=== PATIENT | male | born 1960 | race African-American/Black ===

== ENCOUNTER 2020-08-06 15:10 | Emergency (ER) | payer OTHER, SELFPAY ==
--- NOTE | ~2020-08-06 | CT_ITS ---
EXAMINATION: CT ABDOMEN AND PELVIS WITHOUT CONTRAST CLINICAL INFORMATION: Nausea, vomiting. Status post gastric bypass COMPARISON: None TECHNIQUE: Multidetector volumetric imaging was performed from the superior aspect of the liver through the pubic symphysis. Sagittal and coronal reformatted images were obtained on the technologist's workstation. This CT examination was performed using dose optimization techniques as appropriate, variously including the following: *Automated exposure control *Adjustment of mA and/or kV according to patient size (this includes techniques or standardized protocols for targeted exams where dose is matched to indication/reason for exam; i.e. extremities or head) *Use of iterative reconstruction technique DLP: 1079 mGy-cm FINDINGS: LUNG BASES: The visualized lung bases are unremarkable. There is a pacer electrode in the right ventricle. LIVER, GALLBLADDER, AND BILIARY TREE: The liver is normal in size, shape, and attenuation. No focal hepatic lesion or biliary ductal dilatation is present. The gallbladder bladder has been surgically removed. PANCREAS: Unremarkable. SPLEEN: Unremarkable. ADRENAL GLANDS: Unremarkable. KIDNEYS AND URETERS: The kidneys are normal in size, shape, and attenuation. No hydronephrosis, hydroureter, or calculi seen. No perinephric stranding. There are bilateral renal cysts BLADDER: Unremarkable. GASTROINTESTINAL TRACT: There are gastric bypass surgical changes. The small bowel loops are normal caliber. Appendix is normal caliber. Scattered colonic diverticulosis without distention.. ABDOMINAL WALL: No significant hernia is appreciated. LYMPH NODES: Normal. VASCULAR: Unremarkable. PELVIC VISCERA: Unremarkable. OSSEOUS STRUCTURES: There is a nondisplaced anterior left 11th rib fracture or additional bony abnormality seen. There is mild ventral spondylosis L3-L4 disc level. No lytic or sclerotic process seen. CT/CT abdomen pelvis wo con IMPRESSION: No acute intra-abdominal process seen. Colonic diverticulosis without diverticulitis. Bilateral renal cysts. No radiopaque renal calculi. Gastric bypass surgical changes are noted.
[2020-08-06 16:08] VITALS: BP 147/92; PULSE 107; RESP 18; TEMP 37.1; O2SAT 97; BMI 36.2
[2020-08-06 18:52] LABS: Basophils Percent Auto 0.2 % (0-2); Hematocrit 43.2 % (42-52); MANUAL DIFF FLAG SCAN; Mean Corpuscular Volume 87.1 fL (80-98); PLT CLUMP 1; Red Blood Count 4.96 X10*6/uL (4.60-5.80); Red Cell Distribution Width 14.7 % (11.0-16.0); SCAN SMEAR FLAG 1
[2020-08-06 18:54] LABS: Imm Gran Abs Auto 0.02 X10*3/uL (0.00-0.03); Imm Gran Pct Auto 0.4 % (0.0-0.4); Lymphocytes Absolute Auto 0.3 X10*3/uL (1.2-4.9); Lymphocytes Percent Auto 5.9 % (20-40); Mean Corpuscular HGB Conc 34.7 g/dl (31.0-36.0); Mean Corpuscular Hemoglobin 30.2 pg (27.0-33.0); Mean Platelet Volume 9.9 fL (9.4-12.4); Monocytes Absolute Auto 0.5 X10*3/uL (0.1-1.2); Monocytes Percent Auto 8.2 % (2-11); Neutrophils Absolute Auto 4.7 X10*3/uL (2.0-8.3); Neutrophils Percent Auto 85.3 % (45-73); Platelet Count 133 X10*3/uL (160-400); White Blood Count 5.5 X10*3/uL (4.8-10.8)
[2020-08-06 19:14] LABS: SLIDE REVIEW VERIFIED
[2020-08-06 19:51] LABS: Blood Urea Nitrogen 14 mg/dL (9-16)
[2020-08-06 19:53] LABS: Alanine Aminotransferase 24 U/L (0-40); Alkaline Phosphatase 120 U/L (39-117); Aspartate Amino Transferase 37 U/L (5-37); Bilirubin Total 0.4 mg/dL (0.0-1.0); Calcium 9.4 mg/dL (8.4-10.2); Carbon Dioxide 22 mmol/L (22-29); Chloride 98 mmol/L (96-108); Creatinine Clr Calc Pharmacy 66.6; Estimated Glomerular Filt Rate 47; Glucose Random 296 mg/dL (60-115); Sodium 132 mmol/L (135-145); Total Protein 7.4 g/dL (6.5-8.0)
--- NOTE | 2020-08-06 21:13 | ECG_ITS ---
Test Reason : HYPERTENSION Blood Pressure : / mmHG Vent. Rate : 103 BPM Atrial Rate : 103 BPM P-R Int : 140 ms QRS Dur : 118 ms QT Int : 364 ms P-R-T Axes : 033 -48 061 degrees QTc Int : 476 ms Sinus tachycardia with Premature atrial complexes with Aberrant conduction Left anterior fascicular block Left ventricular hypertrophy with QRS widening Cannot rule out Inferior infarct (masked by fascicular block?) , age undetermined Abnormal ECG No previous ECGs available Referred By: Sarah Washington Electronically Signed By:ELIGIO BRANDON MD
--- NOTE | 2020-08-06 21:16 | ED.ABDPAIN ---
HPI - Abdominal Pain General Chief Complaint: Abdominal Pain Stated Complaint: N/V/D X'S 3 DAYS Time Seen by Provider: 08/06/20 21:01 History of Present Illness HPI narrative: Patient is a 60-year-old male with a history of atrial fibrillation. Status post gastric bypass back in 2002. Presents today with having nausea vomiting diarrhea. Diarrhea is brown in color appears complex. Patient is on Eliquis for atrial fibrillation. Patient is complaining of nausea mostly of whitish clearish liquid. Patient denies any chest pain. No diaphoresis. Patient is from home. No coughing or congestion or upper respiratory symptoms. Related Data Previous Rx's Medication Instructions Recorded ondansetron 4 mg PO TID PRN 5 Days #10 tab 08/06/20 Allergies Allergy/AdvReac Type Severity Reaction Status Date / Time No Known Allergies Allergy Verified 08/06/20 16:12 Review of Systems Review of Systems Constitutional: No Weight loss, No Fever, No Chills, No Night Sweats, No Fatigue, No Malaise ENT/Mouth: No Hearing loss, No Ear Pain, No Nasal Congestion, No Sinus Pain, No Hoarseness, No sore throat, No Rhinorrhea, No Swallowing Difficulty Eyes: No Eye Pain, No Swelling, No Redness, No Foreign Body, No Discharge, No Vision Changes Cardiovascular: No Chest Pain, No SOB, No Dyspnea on Exertion, No Orthopnea, No Edema, No Palpitations Respiratory: No Cough, No Sputum, No Wheezing, No Smoke Exposure, No Dyspnea Gastrointestinal: No Nausea, positive Vomiting, positive Diarrhea, No Constipation, positive abdominal Pain, No Hematochezia, No Melena Genitourinary: no irregular bleeding, No Dysuria, No Urinary Frequency, No Hematuria, No Urinary Incontinence, No Urgency, No Flank Pain, No Urinary Flow Changes, No Hesitancy Musculoskeletal: No joint pain, No Myalgias, No Joint Swelling Skin: No Skin Lesions, No rash Neuro: No Weakness, No Numbness, No Paresthesias, No Loss of Consciousness, No Dizziness, No Headache Psych: No Anxiety/Panic, No Depression, No SI/HI/AH/VH, No Social Issues, Heme/Lymph: No Bruising, No Bleeding,No Lymphadenopathy Endocrine: No Polyuria, No Polydipsia, No Temperature Intolerance Yes all other systems are reviewed and are negative Physical Exam Vital Signs: Vital Signs: Last Vital Signs Temp 98.7 F 08/06/20 22:17 Pulse 96 08/06/20 23:32 Resp 16 08/06/20 23:32 BP 162/72 H 08/06/20 23:32 Pulse Ox 96 08/06/20 22:17 Body Mass Index 36.2 Appearance: Alert. Oriented X3. No acute distress. Eyes: Pupils equal, round and reactive to light. ENT: Pharynx normal. Neck: Normal inspection. Neck supple. No lymph nodes noted. No crepitus CVS: Normal heart rate and rhythm. Pulses normal. Normal S1 and S2 Respiratory: No respiratory distress. Breath sounds normal. No Wheezing. No rales Abdomen: Soft and nontender. No rigidity. No distention. good BS x4 Skin: Skin warm and dry. Normal skin color. Normal skin turgor. Extremities: No lower extremity edema. Neurovascular intact to all extremities. No Lacerations. No Rash Neuro: Oriented X 3. No motor deficit. No sensory deficit. Moving all extermities. No slurred speech MDM - Abdominal Pain MDM Narrative Medical decision making narrative: Previous history of gastric bypass. Patient presented today with nausea. Vomiting. Given Zofran. IV fluids. Patient's CT scan did not show any acute obstruction. No abscess. No perforation. Patient's creatinine is 1.5. This is about baseline. Patient's potassium on recheck was 5 which is normal. Patient to be discharged home as symptoms improved now he is tolerating p.o.. In stable condition Medical Records Attestation: I reviewed the patient's medical records. Lab Data Attestation: I reviewed the patient's lab results. Result diagrams: 08/06/20 18:43 08/06/20 22:15 Labs: Lab Results 08/06/20 08/06/20 08/06/20 Range/Units 18:43 18:43 22:15 WBC 5.5 (4.8-10.8) X10*3/uL RBC 4.96 (4.60-5.80) X10*6/uL Hgb 15.0 (14.0-18.0) g/dl Hct 43.2 (42-52) % MCV 87.1 (80-98) fL MCH 30.2 (27.0-33.0) pg MCHC 34.7 (31.0-36.0) g/dl RDW 14.7 (11.0-16.0) % Plt Count 133 L (160-400) X10*3/uL MPV 9.9 (9.4-12.4) fL Immature Gran % (Auto) 0.4 (0.0-0.4) % Neut % (Auto) 85.3 H (45-73) % Lymph % (Auto) 5.9 L (20-40) % [place] % (Auto) 8.2 (2-11) % Eos % (Auto) 0.0 (0-4) % Baso % (Auto) 0.2 (0-2) % Lymph # (Auto) 0.3 L (1.2-4.9) X10*3/uL [place] # (Auto) 0.5 (0.1-1.2) X10*3/uL Eos # (Auto) 0.0 (0.0-0.4) X10*3/uL Baso # (Auto) 0.0 (0.0-0.2) X10*3/uL Abs Immat Gran (auto) 0.02 (0.00-0.03) X10*3/uL Absolute Neuts (auto) 4.7 (2.0-8.3) X10*3/uL Absolute Nucleated RBC 0.000 (0.0-0.012) X10*3/uL Nucleated RBC % (auto) 0.0 (0.0-0.2) /100WBC Smear Tech's Comments VERIFIED Sodium 132 L 134 L (135-145) mmol/L Potassium 6.5 H* 5.0 D (3.3-5.1) mmol/L Chloride 98 100 (96-108) mmol/L Carbon Dioxide 22 17 L (22-29) mmol/L Anion Gap 19 22 H (12-20) BUN 14 14 (9-16) mg/dL Creatinine 1.50 H 1.58 H (0.5-1.4) mg/dL Estim Creat Clear Calc 66.6 63.3 Estimated GFR 47 45 Random Glucose 296 H 275 H (60-115) mg/dL Calcium 9.4 8.5 D (8.4-10.2) mg/dL Total Bilirubin 0.4 (0.0-1.0) mg/dL AST 37 (5-37) U/L ALT 24 (0-40) U/L Alkaline Phosphatase 120 H (39-117) U/L Total Protein 7.4 (6.5-8.0) g/dL Albumin 4.0 (3.5-5.0) g/dL COVID-19 ([facility]) (Negative) COVID-19 Clin Com 08/06/20 Range/Units 22:15 WBC (4.8-10.8) X10*3/uL RBC (4.60-5.80) X10*6/uL Hgb (14.0-18.0) g/dl Hct (42-52) % MCV (80-98) fL MCH (27.0-33.0) pg MCHC (31.0-36.0) g/dl RDW (11.0-16.0) % Plt Count (160-400) X10*3/uL MPV (9.4-12.4) fL Immature Gran % (Auto) (0.0-0.4) % Neut % (Auto) (45-73) % Lymph % (Auto) (20-40) % [place] % (Auto) (2-11) % Eos % (Auto) (0-4) % Baso % (Auto) (0-2) % Lymph # (Auto) (1.2-4.9) X10*3/uL [place] # (Auto) (0.1-1.2) X10*3/uL Eos # (Auto) (0.0-0.4) X10*3/uL Baso # (Auto) (0.0-0.2) X10*3/uL Abs Immat Gran (auto) (0.00-0.03) X10*3/uL Absolute Neuts (auto) (2.0-8.3) X10*3/uL Absolute Nucleated RBC (0.0-0.012) X10*3/uL Nucleated RBC % (auto) (0.0-0.2) /100WBC Smear Tech's Comments Sodium (135-145) mmol/L Potassium (3.3-5.1) mmol/L Chloride (96-108) mmol/L Carbon Dioxide (22-29) mmol/L Anion Gap (12-20) BUN (9-16) mg/dL Creatinine (0.5-1.4) mg/dL Estim Creat Clear Calc Estimated GFR Random Glucose (60-115) mg/dL Calcium (8.4-10.2) mg/dL Total Bilirubin (0.0-1.0) mg/dL AST (5-37) U/L ALT (0-40) U/L Alkaline Phosphatase (39-117) U/L Total Protein (6.5-8.0) g/dL Albumin (3.5-5.0) g/dL COVID-19 ([facility]) Negative (Negative) COVID-19 Clin Com See Note Discharge Plan Discharge Clinical Impression: Nausea, Vomiting Patient Disposition: Home, Self-Care Instructions: Acute Nausea and Vomiting (ED) Prescriptions: New ondansetron 4 mg tablet,disintegrating 4 mg PO TID PRN (Reason: nausea and vomiting) 5 Days Qty: 10 RF: 0 Referrals: Physician,Unknown [Primary Care Provider] - 2 days PMF[facility] Past Medical History Attestation statement: The following information was validated with the patient. Medical History Afib Diabetes HTN (hypertension) Surgical History H/O coronary artery bypass surgery Social History Social History Advance Directives: No Advance Directives Information Provided: Yes
[2020-08-06 21:24] VITALS: RESP 16
[2020-08-06] MEDS: 0.9 % Sodium Chloride 1,000 ML 999 ML IV (21:24)
[2020-08-06] MEDS: ondansetron HCL 4 MG/2 ML VIAL IVPUSH ×2 (21:24→23:31)
[2020-08-06] MEDS: HYDROmorphone HCl 0.5 MG/0.5 ML SYRINGE IVPUSH ×2 (21:24→23:30)
[2020-08-06 22:17] VITALS: BP 172/70; PULSE 73; RESP 18; TEMP 37.1; O2SAT 96
[2020-08-06 22:38] LABS: COVID-19 Test Negative (Negative)
[2020-08-06 22:56] LABS: Anion Gap 22 (12-20); Blood Urea Nitrogen 14 mg/dL (9-16); Calcium 8.5 mg/dL (8.4-10.2); Carbon Dioxide 17 mmol/L (22-29); Chloride 100 mmol/L (96-108); Creatinine Clr Calc Pharmacy 63.3; Estimated Glomerular Filt Rate 45; Glucose Random 275 mg/dL (60-115); Sodium 134 mmol/L (135-145)
[2020-08-06 23:30] LABS: Potassium 6.5 mmol/L (3.3-5.1)
[2020-08-06 23:31] LABS: Anion Gap 19 (12-20)
[2020-08-06 23:32] VITALS: BP 162/72; PULSE 96; RESP 16
--- NOTE | 2020-08-06 23:42 | PC.NURSE ---
PT MEDICATED PER EMAR FOR PAIN AND NAUSEA. PT RESTING IN STRETCHER IN NAD. PT REMAINS ON MONITOR WITH HR 108. PT DENIES ANY COMPLAINTS AND WAS CLEANED UP AFTER HAVING A LG BM AFTER CT. WILL CONTINUE TO MONITOR PT.
== END 2020-08-07 00:44 | disposition home or self-care (01) ==
PROVIDERS: Emergency Provider Emergency Medicine Emergency Medical Services
DX: R11.2 Nausea with vomiting, unspecified (principal); R19.7 Diarrhea, unspecified; Z20.822 Contact with and (suspected) exposure to COVID-19; I48.91 Unspecified atrial fibrillation; Z98.84 Bariatric surgery status; Z79.01 Long term (current) use of anticoagulants
CPT/HCPCS: 36415; 74176; 80048; 80053; 85025; 87635; 93005; 96361; 96374; 96375; 96376; 99284; J1170; J2405

== ENCOUNTER 2021-04-24 10:59 | Inpatient (IN) | payer OTHER, SELFPAY ==
[2021-04-24] VITALS (7 sets, daily range): BP systolic 107–133; BP diastolic 60–88; PULSE 91–118; RESP 13–19; TEMP 35.8–37; O2SAT 97–100; BMI 34.8
--- NOTE | ~2021-04-24 | XR_ITS ---
EXAMINATION: XR CHEST CLINICAL INFORMATION: Right IJ placement. COMPARISON: None TECHNIQUE: Frontal view of the chest was obtained. XR/XR chest 1V FINDINGS/IMPRESSION: Right internal jugular central venous catheter terminates in the mid SVC. No pneumothorax. Lungs are clear. No pleural effusion. Normal heart size and vascularity. Single lead AICD stably positioned.
--- NOTE | ~2021-04-24 | CT_ITS ---
EXAMINATION: CT ANGIOGRAM OF THE CHEST WITH AND WITHOUT CONTRAST (CT PULMONARY ANGIOGRAM FOR PE) CLINICAL INFORMATION: Reason for Exam SOB, hypoxia, vomiting blood, R/0 PE COMPARISON: None TECHNIQUE: Prior to contrast administration, noncontrast localization images were obtained. Subsequently, multidetector volumetric imaging was performed from the thoracic inlet to below the diaphragms following the administration of 80 mL Omnipaque 350 intravenous contrast. No contrast reaction reported Sagittal, coronal, and MIP oblique sagittal reformatted images were obtained on the CT workstation, uploaded to PACS, and reviewed. This CT examination was performed using dose optimization techniques as appropriate, variously including the following: *Automated exposure control *Adjustment of mA and/or kV according to patient size (this includes techniques or standardized protocols for targeted exams where dose is matched to indication/reason for exam; i.e. extremities or head) *Use of iterative reconstruction technique Total exam dose-length product 1787 mGy-cm FINDINGS: QUALITY OF STUDY/CONTRAST BOLUS: Satisfactory. PULMONARY ARTERIES: No central or segmental pulmonary emboli. THORACIC AORTA: No aneurysm or dissection. LUNG: Mild atelectatic changes in right lung base. No acute pneumonic consolidation. PLEURA: There is minimal left posterior dependent pleural effusion. No calcified pleural plaques are pneumothorax. MEDIASTINUM: Normal heart size. No pericardial effusion. No hilar or mediastinal lymphadenopathy. No evidence of septal bowing or right heart strain. CHEST WALL/AXILLA: No axillary or internal mammary lymphadenopathy. OSSEOUS STRUCTURES: No acute or suspicious osseous abnormality. UPPER ABDOMEN: The liver is diffusely attenuated without focal lesion. 2.3 cm cyst upper pole and an exophytic 2.21 cm cyst upper/mid pole right kidney. Likely small additional cyst seen. No reflux of contrast into the hepatic veins to suggest elevated right heart pressures. CT/CT angio chest PE protocol IMPRESSION: No evidence of PE. No evidence of aortic dissection or aneurysm. Minimal right lower lobe atelectasis. Mild hepatic steatosis. Multiple right renal cysts VTE: negative
--- NOTE | ~2021-04-24 | CT_ITS ---
EXAMINATION: CT ABDOMEN AND PELVIS WITH CONTRAST CLINICAL INFORMATION: Diffuse abdominal pain. Vomiting blood. COMPARISON: CT of the abdomen and pelvis done on 08/06/2020. TECHNIQUE: Multidetector volumetric images were obtained from the superior aspect of the liver through the pubic symphysis following administration 100 mL of Omnipaque 350 intravenous contrast. Sagittal and coronal reformatted images were obtained on the technologist's workstation. Oral contrast: No This CT examination was performed using dose optimization techniques as appropriate, variously including the following: *Automated exposure control *Adjustment of mA and/or kV according to patient size (this includes techniques or standardized protocols for targeted exams where dose is matched to indication/reason for exam; i.e. extremities or head) *Use of iterative reconstruction technique DLP: 1238 mGy-cm FINDINGS: LUNG BASES: Linear pleuroparenchymal presumed scar related changes are noted bilaterally (right greater than left), similar to prior study. Significant coronary artery calcifications are noted, similar to prior study. Trace amount of left-sided effusion is seen. LIVER, GALLBLADDER, AND BILIARY TREE: Diffuse hepatic hypodensity consistent with severe steatosis present, similar to prior study. No superimposed focal liver lesion. The gallbladder is surgically absent. PANCREAS: 2.3 cm maximum transverse dimension hypodensity is noted at the tail of the pancreas with subtle peripancreatic inflammatory changes around the tail, may represent focal pancreatitis versus distal pancreatic neoplasm with superimposed focal pancreatitis. Finding is new since 08/06/2020. The remainder of the pancreas otherwise appear unremarkable. SPLEEN: Unremarkable. ADRENAL GLANDS: Unremarkable. KIDNEYS AND URETERS: Multiple cortical as well as exophytic hypodensities are present bilaterally, not optimally characterized, likely represent cortical renal cysts are noted no evidence of any hydronephrosis or obstruction or perinephric or periureteric inflammatory changes, unchanged. BLADDER: Unremarkable. GASTROINTESTINAL TRACT: Extensive fecal residual is noted within the rectum with apparent short segment narrowing of the distal sigmoid colon the remainder of the large bowel shows extensive fecal residual and colonic diverticulosis without any CT features of superimposed acute diverticulitis. The appendix is not visualized. The small bowel loops are decompressed. Postsurgical changes are noted at the stomach. ABDOMINAL WALL: No significant hernia is appreciated. LYMPH NODES: There are no pathologically enlarged retroperitoneal, pelvic, groin or mesenteric lymphadenopathy present. VASCULAR: Atherosclerotic disease is present within the aorta and is branches without aneurysm formation. PELVIC VISCERA: Trace amount of free fluid is noted within the presacral space. OSSEOUS STRUCTURES: No suspicious focal lesion. CT/CT abdomen pelvis w con IMPRESSION: 1. Abnormal study showing 2.3 cm maximum dimension hypodense lesion at the tail of the pancreas with subtle peripancreatic inflammatory changes around the tail, may represent focal pancreatitis versus distal pancreatic neoplasm with superimposed focal pancreatitis. This is a new finding since 08/06/2020. 2. Trace amount of left-sided pleural effusion and significant atherosclerotic coronary arterial disease. 3. Diffuse hepatic hypodensity consistent with severe hepatic steatosis. No superimposed focal liver lesion. 4. Short segment narrowing of the distal sigmoid colon, may represent focal peristalsis versus neoplasm. Significant fecal residual is noted within the remainder of the sigmoid colon as well as within the rectum. If the patient hasn't had any recent colonoscopy, follow-up colonoscopy would be indicated for further clarification. 5. Trace amount of free fluid within the presacral space. This critical result was discussed with Imer Joy MD at 4:15 PM on 04/24/2021 and it was ascertained that the content and urgency of the report was understood at the time of direct communication. Fleischner guidelines were followed.
--- NOTE | 2021-04-24 11:18 | ECG_ITS ---
Test Reason : ANEMIA Blood Pressure : / mmHG Vent. Rate : 103 BPM Atrial Rate : 103 BPM P-R Int : 134 ms QRS Dur : 120 ms QT Int : 372 ms P-R-T Axes : 035 -51 108 degrees QTc Int : 487 ms Sinus tachycardia Left axis deviation Incomplete left bundle branch block Minimal voltage criteria for LVH, may be normal variant ( Mert product ) Nonspecific ST and T wave abnormality Abnormal ECG When compared with ECG of 06-AUG-2020 22:34, No significant changes seen Referred By: Imer Joy Electronically Signed By:ADRIANNA FRANCOIS
--- NOTE | 2021-04-24 11:24 | ED_ITS ---
HPI - Abdominal Pain General Stated Complaint: ABD PAIN W/BLOOD IN VOMIT PER SNF Time Seen by Provider: 04/24/21 11:18 Source: patient and EMS Mode of arrival: EMS Limitations: no limitations History of Present Illness HPI narrative: 61-year-old male who was transferred from [facility] for evaluation abdominal pain and vomiting blood. The patient states that he developed abdominal pain several hours prior to coming to the emergency department. He states the pain came on gradually and I got severe. He states that he now has a constant, squeezing sensation located throughout his abdomen but more severe in his upper abdominal area. He states that the pain is 10/10. He states that he did have nausea and vomited 1 cup of bright red blood. He states that he has never had hematemesis/hemoptysis before in the past. He states that he has chills, he feels shortness of breath, and he had nausea. He has been constipated and has not had a bowel movement in 2 days. Patient also states that his left knee has been bothering him for 2 days. He states that he has gout in this knee and the knee was drained approximately 2 months prior at [facility]. Patient has a history atrial fibrillation and cardiomegaly and he is on Eliquis. He states that 1-2 weeks prior he had atrial fibrillation with a rapid ventricular response, he was admitted to [facility] and then sent to [facility] secondary to leg weakness for rehab. EMS was not able to get a good pulse ox on the patient and placed him on 100% non-rebreather. I was able to review the patient's [facility] discharge report dated 04/16/2021. The patient presented with abdominal pain and vomiting was found to have mild pancreatitis on his CT scan. He was also tachycardic at that time. The patient did drink alcohol prior to the onset of his pancreatitis. Is also found to be tachycardic on presentation. Related Data Home Medications Medication Instructions Recorded Confirmed acetaminophen 325 mg tablet 650 mg PO Q6H PRN 04/24/21 04/24/21 amiodarone 200 mg tablet 1 tab PO DAILY 04/24/21 04/24/21 apixaban 5 mg tablet (Eliquis) 1 tab PO BID 04/24/21 04/24/21 atorvastatin 10 mg tablet 1 tab PO DAILY 04/24/21 04/24/21 glipizide 10 mg tablet, extended 1 tab PO DAILY 04/24/21 04/24/21 release 24 hr hydrocortisone 1 %-iodoquinol 1 % 1 appl TOPICAL DAILY PRN 04/24/21 04/24/21 topical cream insulin lispro 100 unit/mL 1 sliding scale dose SUBCUT 04/24/21 04/24/21 subcutaneous solution (Humalog USEASDIRECTD U-100 Insulin) [id number] 1 cap PO DAILY 04/24/21 04/24/21 20,000-63,000-84,000 unit capsule, delayed rel (Zenpep) lorazepam 0.5 mg tablet 0.5 mg PO Q8H PRN 04/24/21 04/24/21 magnesium oxide 400 mg PO DAILY 04/24/21 04/24/21 metoprolol tartrate 50 mg tablet 1 tab PO BID 04/24/21 04/24/21 oxycodone 5 mg capsule 5 mg PO Q6H PRN 04/24/21 04/24/21 pantoprazole 40 mg tablet,delayed 1 tab PO DAILY 04/24/21 04/24/21 release Allergies Allergy/AdvReac Type Severity Reaction Status Date / Time No Known Allergies Allergy Verified 08/06/20 16:12 Review of Systems Review of Systems Yes all other systems are reviewed and are negative [facility] Past Medical History [facility] Narrative: Past medical history obtained from [facility] records: Alcohol-induced chronic pancreatitis, tachycardia, alcohol abuse, chronic atrial fibrillation, chronic kidney disease, . diabetes mellitus, hyperlipidemia, arthrotic heart disease gout, automatic implanted cardiac defibrillator, non ischemic cardiomyopathy EF 20-25% with akinetic inferior, inferior septal and inferior apical jack, Past surgical history: Gastric bypass in 2002, automatic implanted cardiac defibrillator. Social history: Patient was living at home prior to his recent admission at [facility] on 04/16/2021. He denies tobacco, alcohol and drug use. He states that he has not drank alcohol in over 1 year. Medical History Afib Diabetes HTN (hypertension) Surgical History H/O coronary artery bypass surgery Social History Social History Advance Directives: No Advance Directives Information Provided: No Physical Exam ED Vital Signs: Vital Signs - 24 hr 04/24/21 11:41 04/24/21 11:49 04/24/21 12:35 Temperature 96.5 F L Pulse Rate 97 100 Respiratory Rate 13 19 Blood Pressure 132/88 130/60 Pulse Oximetry 100 100 04/24/21 15:30 Temperature 97.8 F Pulse Rate 112 H Respiratory Rate 16 Blood Pressure 133/77 Pulse Oximetry 97 BMI result Body Mass Index 34.8 Const Other: Awake, alert, male patient, answers all questions appropriately, does not appear to be in distress HENMT Head: Yes normal to inspection, Yes normocephalic and Yes atraumatic Ears: external ears normal General nose exam: Normal external nose present Face and sinus: Yes normal facial exam Mouth: Normal oral and palatal mucosa present Throat: Yes posterior oropharynx normal Eyes General: appearance normal, both eyes and all related structures Pupils: Equal, round and reactive pupils present Neck Neck: Yes normal visual inspection, Yes no lymphadenopathy, Yes trachea midline and Yes supple Chest Chest palpation & inspection: normal inspection of the chest and normal palpation of entire chest wall Resp Effort & Inspection: normal respiratory effort and able to speak in complete sentences Auscultation: clear to auscultation bilaterally Cardio Rate: regular rate Rhythm: regular rhythm Heart sounds: S1 normal heart sound present, S2 normal heart sound present and no murmurs GI Inspection: Yes normal to inspection Palpation (GI): Soft to palpation, Tenderness to palpation present (GI) (Moderate, diffuse abdominal tenderness) and no guarding Auscultation: normal bowel sounds General: Yes no CVA tenderness Back/Spine/Pelvis Back: no CVA tenderness Skin General skin exam: no rashes or lesions noted Neuro Cranial nerves: Yes CN's II-XII intact bilaterally and Yes Equal, round and reactive pupils present Cognition (Neuro): normal cognition Motor exam (neuro): 5/5 motor strength present throughout Extrem Other: Left knee does have a joint effusion, there is no increased warmth over the knee, he has limited range of motion secondary to pain, significant tenderness with palpation of the knee General: Yes normal to inspection Psych Appearance: grossly normal Speech and movement: Normal speech and movement present Affect: normal affect Attitude: cooperative Thought process: Normal thought process present Thought content: Normal thought content present Course Course Course Narrative: 61-year-old male sent to the emergency department from his half-way facility ([facility]) for evaluation of abdominal pain, vomiting blood and left knee pain. Patient's abdominal pain and vomiting blood started 2 hours prior to coming to the emergency department. The patient has had left knee pain for sev eral days has had similar pain in the past secondary to gout. Paramedics were unable to obtain a pulse ox on the patient and transported him on 100% non- rebreather. Patient does not appear to be in respiratory distress and I will try to get him on a lower dose of oxygen based on his pulse oximetry readings. Patient does have diffuse abdominal pain with increased abdominal pain across his upper abdomen. I ordered a type and screen, CBC, CMP, lipase, troponin, lactic acid, D-dimer, PT/INR, PTT and troponin EKG will be obtained. I will also get a CT scan of the patient's chest and abdomen with IV contrast. Patient was ordered to get normal saline IV x1 L , morphine 4 mg IV and Zofran 4 mg IV. 1623: Nursing staff was unable to get an IV in this patient was unable to get an external jugular. The patient is on Eliquis and I asked the career development consultant, Dr. Tony if he can help us get an and internal jugular IV with ultrasound. He came to the emergency department and was able to get IV access for us. Please see his note. He also did a bedside echocardiogram to confirm the patient does have low EF and an AICD. Laboratory evaluation: H&H 10.5 and 31.2 compared to an H&H of 10.2 and 29.6 obtained on 04/16/2021 at [facility] suggest that this low H&H may be chronic. Patient's COVID-19 test was negative. Lipase was 10. CT scan of the chest revealed no evidence PE and no etiology for the patient's hematemesis. CT scan of the abdomen pelvis revealed a 2.3 cm hypodense lesion at the tail the pancreas with subtle pancreatic inflammation which may be consistent with focal pancreatitis versus neoplasm. Radiology also noted a short segment of narrowing of the distal sigmoid colon which could represent peristalsis versus amilcar spasm. Given the patient's low H&H and hematemesis, I will discuss admission with the covering hospitalist. 1658: I did discuss the patient's presentation with the covering hospital plan administrator, Dr. Monreal. She recommended stopping the Eliquis and an EDG can be performed 48 hours later. She recommended repeating H&H now and she transfusing the patient had has a drop in his H&H. Also, she states that the patient against actively bleeding then we should consider transferring him to [facility] for GI bleed while on Eliquis. MDM - Abdominal Pain Lab Data Result diagrams: 04/24/21 13:35 04/24/21 11:47 Labs: Lab Results 04/24/21 04/24/21 04/24/21 Range/Units 11:47 11:47 11:47 WBC (4.8-10.8) X10*3/uL RBC (4.60-5.80) X10*6/uL Hgb (14.0-18.0) g/dl Hct (42.0-52.0) % MCV (80.0-98.0) fL MCH (27.0-33.0) pg MCHC (31.0-36.0) g/dl RDW (11.0-16.0) % Plt Count (160-400) X10*3/uL MPV (9.4-12.4) fL Immature Gran % (Auto) (0.0-0.4) % Neut % (Auto) (45-73) % Lymph % (Auto) (20-40) % [place] % (Auto) (2-11) % Eos % (Auto) (0-4) % Baso % (Auto) (0-2) % Lymph # (Auto) (1.2-4.9) X10*3/uL [place] # (Auto) (0.1-1.2) X10*3/uL Eos # (Auto) (0.0-0.4) X10*3/uL Baso # (Auto) (0.0-0.2) X10*3/uL Abs Immat Gran (auto) (0.00-0.03) X10*3/uL Absolute Neuts (auto) (2.0-8.3) x10*3/uL Absolute Nucleated RBC (0.0-0.012) X10*3/uL Nucleated RBC % (auto) (0.0-0.2) /100WBC PT (9.9-13.0) SEC INR (0.9-1.1) APTT (24.1-38.0) SEC D-Dimer High Sensitivty NG/ML Sodium 139 (135-145) mmol/L Potassium 5.2 H (3.3-5.1) mmol/L Chloride 105 (96-108) mmol/L Carbon Dioxide 20 L (22-29) mmol/L Anion Gap 19 (12-20) BUN 9 (9-16) mg/dL Creatinine 1.01 (0.5-1.4) mg/dL Estim Creat Clear Calc 95.8 Estimated GFR > 60 Random Glucose 100 D (60-115) mg/dL Lactic Acid (0.5-2.0) mmol/L Calcium 8.5 (8.4-10.2) mg/dL Total Bilirubin 1.8 H (0.0-1.0) mg/dL AST 62 H (5-37) U/L ALT 28 (0-40) U/L Alkaline Phosphatase 111 (39-117) U/L Troponin I High Sens (<3.5-35.0) ng/L Total Protein 6.5 (6.5-8.0) g/dL Albumin 2.7 L D (3.5-5.0) g/dL Lipase 10 (8-78) U/L Urine Color YELLOW Urine Appearance CLEAR Urine pH 7.5 (5.0-8.0) Ur Specific [place] 1.010 (1.005-1.025) Urine Protein NEG (NEG-TRACE) MG/DL Urine Glucose (UA) NEG (NEG) MG/DL Urine Ketones 15 (NEG) MG/DL Urine Blood NEG (NEG) Urine Nitrite NEG (NEG) Ur Leukocyte Esterase NEG (NEG) COVID-19 (CASEY) Negative (Negative) COVID-19 Clin Com See Note Blood Type Antibody Screen 04/24/21 04/24/21 04/24/21 Range/Units 13:35 13:35 13:35 WBC 6.8 (4.8-10.8) X10*3/uL RBC 3.11 L (4.60-5.80) X10*6/uL Hgb 10.5 L (14.0-18.0) g/dl Hct 31.2 L (42.0-52.0) % MCV 100.3 H (80.0-98.0) fL MCH 33.8 H (27.0-33.0) pg MCHC 33.7 (31.0-36.0) g/dl RDW 19.2 H (11.0-16.0) % Plt Count 118 L (160-400) X10*3/uL MPV 10.1 (9.4-12.4) fL Immature Gran % (Auto) 0.3 (0.0-0.4) % Neut % (Auto) 79.5 H (45-73) % Lymph % (Auto) 9.6 L (20-40) % [place] % (Auto) 10.2 (2-11) % Eos % (Auto) 0.1 (0-4) % Baso % (Auto) 0.3 (0-2) % Lymph # (Auto) 0.7 L (1.2-4.9) X10*3/uL [place] # (Auto) 0.7 (0.1-1.2) X10*3/uL Eos # (Auto) 0.0 (0.0-0.4) X10*3/uL Baso # (Auto) 0.0 (0.0-0.2) X10*3/uL Abs Immat Gran (auto) 0.02 (0.00-0.03) X10*3/uL Absolute Neuts (auto) 5.4 (2.0-8.3) x10*3/uL Absolute Nucleated RBC 0.000 (0.0-0.012) X10*3/uL Nucleated RBC % (auto) 0.0 (0.0-0.2) /100WBC PT 15.1 H (9.9-13.0) SEC INR 1.3 H (0.9-1.1) APTT 36.9 (24.1-38.0) SEC D-Dimer High Sensitivty < 150 NG/ML Sodium (135-145) mmol/L Potassium (3.3-5.1) mmol/L Chloride (96-108) mmol/L Carbon Dioxide (22-29) mmol/L Anion Gap (12-20) BUN (9-16) mg/dL Creatinine (0.5-1.4) mg/dL Estim Creat Clear Calc Estimated GFR Random Glucose (60-115) mg/dL Lactic Acid 2.0 (0.5-2.0) mmol/L Calcium (8.4-10.2) mg/dL Total Bilirubin (0.0-1.0) mg/dL AST (5-37) U/L ALT (0-40) U/L Alkaline Phosphatase (39-117) U/L Troponin I High Sens (<3.5-35.0) ng/L Total Protein (6.5-8.0) g/dL Albumin (3.5-5.0) g/dL Lipase (8-78) U/L Urine Color Urine Appearance Urine pH (5.0-8.0) Ur Specific [place] (1.005-1.025) Urine Protein (NEG-TRACE) MG/DL Urine Glucose (UA) (NEG) MG/DL Urine Ketones (NEG) MG/DL Urine Blood (NEG) Urine Nitrite (NEG) Ur Leukocyte Esterase (NEG) COVID-19 ([facility]Y) (Negative) COVID-19 Clin Com Blood Type Antibody Screen 04/24/21 04/24/21 Range/Units 13:35 13:35 WBC (4.8-10.8) X10*3/uL RBC (4.60-5.80) X10*6/uL Hgb (14.0-18.0) g/dl Hct (42.0-52.0) % MCV (80.0-98.0) fL MCH (27.0-33.0) pg MCHC (31.0-36.0) g/dl RDW (11.0-16.0) % Plt Count (160-400) X10*3/uL MPV (9.4-12.4) fL Immature Gran % (Auto) (0.0-0.4) % Neut % (Auto) (45-73) % Lymph % (Auto) (20-40) % [place] % (Auto) (2-11) % Eos % (Auto) (0-4) % Baso % (Auto) (0-2) % Lymph # (Auto) (1.2-4.9) X10*3/uL [place] # (Auto) (0.1-1.2) X10*3/uL Eos # (Auto) (0.0-0.4) X10*3/uL Baso # (Auto) (0.0-0.2) X10*3/uL Abs Immat Gran (auto) (0.00-0.03) X10*3/uL Absolute Neuts (auto) (2.0-8.3) x10*3/uL Absolute Nucleated RBC (0.0-0.012) X10*3/uL Nucleated RBC % (auto) (0.0-0.2) /100WBC PT (9.9-13.0) SEC INR (0.9-1.1) APTT (24.1-38.0) SEC D-Dimer High Sensitivty NG/ML Sodium (135-145) mmol/L Potassium (3.3-5.1) mmol/L Chloride (96-108) mmol/L Carbon Dioxide (22-29) mmol/L Anion Gap (12-20) BUN (9-16) mg/dL Creatinine (0.5-1.4) mg/dL Estim Creat Clear Calc Estimated GFR Random Glucose (60-115) mg/dL Lactic Acid (0.5-2.0) mmol/L Calcium (8.4-10.2) mg/dL Total Bilirubin (0.0-1.0) mg/dL AST (5-37) U/L ALT (0-40) U/L Alkaline Phosphatase (39-117) U/L Troponin I High Sens 4.0 (<3.5-35.0) ng/L Total Protein (6.5-8.0) g/dL Albumin (3.5-5.0) g/dL Lipase (8-78) U/L Urine Color Urine Appearance Urine pH (5.0-8.0) Ur Specific [place] (1.005-1.025) Urine Protein (NEG-TRACE) MG/DL Urine Glucose (UA) (NEG) MG/DL Urine Ketones (NEG) MG/DL Urine Blood (NEG) Urine Nitrite (NEG) Ur Leukocyte Esterase (NEG) COVID-19 ([facility]Y) (Negative) COVID-19 Clin Com Blood Type O Positive Antibody Screen NEGATIVE ECG Data Attestation: I personally reviewed and interpreted this ECG as follows: Interpretation: 1144: Critical Care Time Critical Care Time Total Critical Care Time: 45 Attestation: Critical Care: The patient was critically ill with a high probability of imminent or life threatening deterioration. I spent greater than 30 minutes of discontinuous time evaluating the patient,delivering critical care at the bedside, discussing and evaluating pertinent data with consultants. Critical care time does not include time spent performing separately billable procedures or teaching. Total time spent performing critical care was 45 minutes. Discharge Plan Discharge Clinical Impression: Hematemesis, Anemia, Alcohol abuse, Acute pancreatitis, Acute gout of left knee Patient Disposition: Admitted As Inpatient
--- NOTE | 2021-04-24 12:03 | PC.NURSE ---
2 RN's attempted x2 at IV access. unsuccessful. patient in no obvious distress, but reports ongoing nausea. MD made aware of patient access situation
[2021-04-24 12:34] LABS: Alanine Aminotransferase 28 U/L (0-40); Albumin Level 2.7 g/dL (3.5-5.0); Alkaline Phosphatase 111 U/L (39-117); Anion Gap 19 (12-20); Aspartate Amino Transferase 62 U/L (5-37); Bilirubin Total 1.8 mg/dL (0.0-1.0); Blood Urea Nitrogen 9 mg/dL (9-16); Calcium 8.5 mg/dL (8.4-10.2); Carbon Dioxide 20 mmol/L (22-29); Chloride 105 mmol/L (96-108); Creatinine Clr Calc Pharmacy 95.8; Estimated Glomerular Filt Rate > 60; Glucose Random 100 mg/dL (60-115); Lipase 10 U/L (8-78); Potassium 5.2 mmol/L (3.3-5.1); Sodium 139 mmol/L (135-145); Total Protein 6.5 g/dL (6.5-8.0)
[2021-04-24 12:48] LABS: COVID-19 Test Negative (Negative)
[2021-04-24 13:40] LABS: MANUAL DIFF FLAG NO
[2021-04-24] MEDS: 0.9 % Sodium Chloride 1,000 ML 999 ML IV (13:44)
[2021-04-24 13:45] LABS: Basophils Percent Auto 0.3 % (0-2); Eosinophils Percent Auto 0.1 % (0-4); Hematocrit 31.2 % (42.0-52.0); Hemoglobin 10.5 g/dl (14.0-18.0); Imm Gran Abs Auto 0.02 X10*3/uL (0.00-0.03); Imm Gran Pct Auto 0.3 % (0.0-0.4); Lymphocytes Absolute Auto 0.7 X10*3/uL (1.2-4.9); Lymphocytes Percent Auto 9.6 % (20-40); Mean Corpuscular HGB Conc 33.7 g/dl (31.0-36.0); Mean Corpuscular Hemoglobin 33.8 pg (27.0-33.0); Mean Corpuscular Volume 100.3 fL (80.0-98.0); Mean Platelet Volume 10.1 fL (9.4-12.4); Monocytes Absolute Auto 0.7 X10*3/uL (0.1-1.2); Monocytes Percent Auto 10.2 % (2-11); Neutrophils Absolute Auto 5.4 x10*3/uL (2.0-8.3); Neutrophils Percent Auto 79.5 % (45-73); Platelet Count 118 X10*3/uL (160-400); Red Blood Count 3.11 X10*6/uL (4.60-5.80); Red Cell Distribution Width 19.2 % (11.0-16.0); White Blood Count 6.8 X10*3/uL (4.8-10.8)
[2021-04-24] MEDS: Morphine Sulfate 4 MG/ML CARTRIDGE IVPUSH ×4 (13:45→22:41)
[2021-04-24] MEDS: ondansetron HCL 4 MG/2 ML VIAL IVPUSH (13:45)
[2021-04-24 13:55] LABS: INTERNATIONAL NORM RATIO 1.3 (0.9-1.1); Prothrombin Time 15.1 SEC (9.9-13.0)
[2021-04-24 13:58] LABS: Partial Thromboplastin Time 36.9 SEC (24.1-38.0)
[2021-04-24 13:59] LABS: D Dimer High Sensitivity < 150 NG/ML
--- NOTE | 2021-04-24 14:15 | P.PCNCC_ITS ---
Procedures Date of Service Date of Service: 04/24/21 Central Line Placement Right IJ: Central Line Comments: this is an an uric patient with hematemesis and hypotension for whom there was no IV access and he has a known alcoholic cirrhotic so the potential for ongoing bleeding and hypovolemia and instability require placement of central venous pressure catheter patient consented with witnesses and then sterile preparation and draping and u ltrasound guidance gained entry easily without trauma to the right internal jugular vein passing retrograde with Seldinger technique a J tipped guidewire and then a triple-lumen central venous pressure catheter over that to the superior vena cava confirmed by chest x-ray with no pneumothorax no bleeding and then there was sterilely secured and covered Consent for Procedure: Elective - informed consent obtained Time out performed: Yes Sterile Technique Used: Yes Patient placed on monitor/pulse ox: Yes prep: mask, gown and gloves Central line prep: Chlorhexidine scrub Local anesthesia used: lidocaine 1% Ultrasound used for placement: Yes Post procedure: sutured in place, good blood return, all ports aspirated, flushed, capped and sterile dressing applied Post procedure x-ray: tip of catheter in good position and no pneumothorax seen Patient tolerated procedure: well and no complications Complications: none
[2021-04-24] MEDS: iohexoL 350 MG/ML 100 ML INFUS..BTL IV (15:31)
[2021-04-24 15:39] LABS: Appearance Urine CLEAR; Color Urine YELLOW; Glucose Urine UA NEG (NEG); Leukocyte Esterase Urine NEG (NEG); Nitrite Urine NEG (NEG); PH 7.5 (5.0-8.0); Urine Blood NEG (NEG); Urine Ketones 15 MG/DL (NEG); Urine Protein NEG (NEG-TRACE)
--- NOTE | 2021-04-24 16:05 | PHA.MEDREC ---
Pharmacy Consult ? Medication Reconciliation Pharmacy has completed the medication reconciliation.
--- NOTE | 2021-04-24 17:01 | P.HPHOSP_ITS ---
History of Present Illness Date of Service: 04/24/21 Chief Complaint: Abdominal pain, hematemesis A 61 years old male with PMH of chronic pancreatitis, alcohol abuse, fatty liver, gastric bypass surgery, atrial fibrillation, alcoholic cardiomyopathy among others who presented to the hospital complaining of abdominal pain and hematemesis. The patient was discharged recently from [facility] as he was evaluated for abdominal pain treated as acute pancreatitis and discharged to SNF. He reports worsening knee pain over the last few days as he is not taking any active medications for the gout attack he is having. This morning he started to have an episode of bloody vomitus associated with abdominal pain. It was 1 incident and did not happened again since then. In the emergency CT scan was consistent with tail of pancreas inflammation and possible mass. Hemoglobin noticed to be stable since last hospital admission. Admitted for further evaluation and treatment. Review of Systems Review of Systems: No fever, chills or weakness No chest pain, palpitation No shortness of breath or coughing Complaining of generalized abdominal pain, no more nausea but episode of bloody vomitus No urinary symptoms No any rash or wounds Complaining of knee pain PMFSH Medical History Afib Diabetes HTN (hypertension) Family History Mother Hypertension Surgical History H/O coronary artery bypass surgery Social History Advance Directives: No Advance Directives Information Provided: No Meds Allergies Allergy/AdvReac Type Severity Reaction Status Date / Time No Known Allergies Allergy Verified 08/06/20 16:12 Active Medications: Current Medications Acetaminophen (Acetaminophen 325 Mg Tablet) 650 mg PO Q6H PRN PRN Reason: Pain, Mild (Pain Scale 1-3) Sodium Chloride () 1,000 mls @ 100 mls/hr IVCONT .Q10H MANUEL Stop: 04/25/21 12:59 Insulin Human Lispro (Insulin Lispro 100 Unit/Ml 3 Ml Vial) 0 unit SUBCUT QIDACHS MANUEL; Protocol Morphine Sulfate (Morphine Sulfate 4 Mg/Ml Cartridge) 4 mg IVPUSH Q4H PRN; Protocol PRN Reason: Pain, Severe (Pain Scale 7-10) Ondansetron HCl (Ondansetron Hcl 4 Mg/2 Ml Vial) 4 mg IVPUSH Q8H PRN PRN Reason: Nausea and Vomiting Pantoprazole Sodium (Pantoprazole Sodium 40 Mg/10 Ml Vial) 40 mg IVPUSH BID@0630,1630 [facility] Pharmacy Consult (Consult Rx Perform Med Rec) 1 each MISCELLANE ONCE PRN PRN Reason: Consult order Sodium Chloride (0.9 % Sodium Chloride Flush 3 Ml Syringe) 3 ml IVFLUSH QSHIFT [facility] Home Medications Medication Instructions Recorded Confirmed Last Taken Type acetaminophen 325 mg tablet 650 mg PO Q6H PRN 04/24/21 04/24/21 Unknown History amiodarone 200 mg tablet 1 tab PO DAILY 04/24/21 04/24/21 Unknown History apixaban 5 mg tablet (Eliquis) 1 tab PO BID 04/24/21 04/24/21 Unknown History atorvastatin 10 mg tablet 1 tab PO DAILY 04/24/21 04/24/21 Unknown History glipizide 10 mg tablet, extended 1 tab PO DAILY 04/24/21 04/24/21 Unknown History release 24 hr hydrocortisone 1 %-iodoquinol 1 % 1 appl TOPICAL DAILY PRN 04/24/21 04/24/21 Unknown History topical cream insulin lispro 100 unit/mL 1 sliding scale dose SUBCUT 04/24/21 04/24/21 Unknown History subcutaneous solution (Humalog USEASDIRECTD U-100 Insulin) [id number] 1 cap PO DAILY 04/24/21 04/24/21 Unknown History 20,000-63,000-84,000 unit capsule, delayed rel (Zenpep) lorazepam 0.5 mg tablet 0.5 mg PO Q8H PRN 04/24/21 04/24/21 Unknown History magnesium oxide 400 mg PO DAILY 04/24/21 04/24/21 Unknown History metoprolol tartrate 50 mg tablet 1 tab PO BID 04/24/21 04/24/21 Unknown History oxycodone 5 mg capsule 5 mg PO Q6H PRN 04/24/21 04/24/21 Unknown History pantoprazole 40 mg tablet,delayed 1 tab PO DAILY 04/24/21 04/24/21 Unknown History release Physical Exam Vital Signs and Narrative: Vital Signs: Last Vital Signs Temp 97.8 F 04/24/21 15:30 Pulse 112 H 04/24/21 15:30 Resp 16 04/24/21 15:30 BP 133/77 04/24/21 15:30 Pulse Ox 97 04/24/21 15:30 BMI result Body Mass Index 34.8 Const: Other: Constitutional : Alert, oriented, not in distress Neck : Normal inspection, Supple Cardiovascular : RRR, S1 S2, no lower extremity edema Respiratory : Fair bilateral air entry, no crackles, wheezes or rhonchi Gastrointestinal: soft, lax, decreased bowel sounds, epigastric tenderness with deep palpation, no surgical signs Skin : Warm, Dry Neurological : Alert & oriented x3, No focal deficit Extremities: Left knee mild effusion with tenderness, no erythema noted. Results Labs CBC and Chem 7: 04/24/21 13:35 04/24/21 11:47 Labs: Laboratory Results - last 24 hr 04/24/21 04/24/21 04/24/21 11:47 11:47 11:47 MCV MCH MCHC RDW Plt Count MPV Immature Gran % (Auto) Neut % (Auto) Lymph % (Auto) [place] % (Auto) Eos % (Auto) Baso % (Auto) Lymph # (Auto) [place] # (Auto) Eos # (Auto) Baso # (Auto) Abs Immat Gran (auto) Absolute Neuts (auto) Absolute Nucleated RBC Nucleated RBC % (auto) PT INR APTT D-Dimer High Sensitivty Anion Gap 19 Estim Creat Clear Calc 95.8 Estimated GFR > 60 Random Glucose 100 D Lactic Acid Calcium 8.5 Total Bilirubin 1.8 H AST 62 H ALT 28 Alkaline Phosphatase 111 Total Protein 6.5 Albumin 2.7 L D Lipase 10 Urine Color YELLOW Urine Appearance CLEAR Urine pH 7.5 Ur Specific Bard 1.010 Urine Protein NEG Urine Glucose (UA) NEG Urine Ketones 15 Urine Blood NEG Urine Nitrite NEG Ur Leukocyte Esterase NEG COVID-19 ([facility]) Negative COVID-19 Clin Com See Note Blood Type Antibody Screen 04/24/21 04/24/21 04/24/21 13:35 13:35 13:35 MCV 100.3 H MCH 33.8 H MCHC 33.7 RDW 19.2 H Plt Count 118 L MPV 10.1 Immature Gran % (Auto) 0.3 Neut % (Auto) 79.5 H Lymph % (Auto) 9.[address] [place] % (Auto) 10.2 Eos % (Auto) 0.1 Baso % (Auto) 0.3 Lymph # (Auto) 0.[address] [place] # (Auto) 0.7 Eos # (Auto) 0.0 Baso # (Auto) 0.0 Abs Immat Gran (auto) 0.02 Absolute Neuts (auto) 5.4 Absolute Nucleated RBC 0.000 Nucleated RBC % (auto) 0.0 PT 15.1 H INR 1.3 H APTT 36.9 D-Dimer High Sensitivty < 150 Anion Gap Estim Creat Clear Calc Estimated GFR Random Glucose Lactic Acid 2.0 Calcium Total Bilirubin AST ALT Alkaline Phosphatase Total Protein Albumin Lipase Urine Color Urine Appearance Urine pH Ur Specific Bard Urine Protein Urine Glucose (UA) Urine Ketones Urine Blood Urine Nitrite Ur Leukocyte Esterase COVID-19 ([facility]) COVID-19 [employer] Com Blood Type Antibody Screen 04/24/21 13:35 MCV MCH MCHC RDW Plt Count MPV Immature Gran % (Auto) Neut % (Auto) Lymph % (Auto) [place] % (Auto) Eos % (Auto) Baso % (Auto) Lymph # (Auto) [place] # (Auto) Eos # (Auto) Baso # (Auto) Abs Immat Gran (auto) Absolute Neuts (auto) Absolute Nucleated RBC Nucleated RBC % (auto) PT INR APTT D-Dimer High Sensitivty Anion Gap Estim Creat Clear Calc Estimated GFR Random Glucose Lactic Acid Calcium Total Bilirubin AST ALT Alkaline Phosphatase Total Protein Albumin Lipase Urine Color Urine Appearance Urine pH Ur Specific Bard Urine Protein Urine Glucose (UA) Urine Ketones Urine Blood Urine Nitrite Ur Leukocyte Esterase COVID-19 ([facility]) COVID-19 Clin Com Blood Type O Positive Antibody Screen NEGATIVE Imaging Radiologist's Impressions: Impressions Chest X-Ray 04/24/21 13:25 FINDINGS/IMPRESSION: Right internal jugular central venous catheter terminates in the mid SVC. No pneumothorax. Lungs are clear. No pleural effusion. Normal heart size and vascularity. Single lead AICD stably positioned. Abdomen/Pelvis CT 04/24/21 15:43 IMPRESSION: 1. Abnormal study showing 2.3 cm maximum dimension hypodense lesion at the tail of the pancreas with subtle peripancreatic inflammatory changes around the tail, may represent focal pancreatitis versus distal pancreatic neoplasm with superimposed focal pancreatitis. This is a new finding since 08/06/2020. 2. Trace amount of left-sided pleural effusion and significant atherosclerotic coronary arterial disease. 3. Diffuse hepatic hypodensity consistent with severe hepatic steatosis. No superimposed focal liver lesion. 4. Short segment narrowing of the distal sigmoid colon, may represent focal peristalsis versus neoplasm. Significant fecal residual is noted within the remainder of the sigmoid colon as well as within the rectum. If the patient hasn't had any recent colonoscopy, follow-up colonoscopy would be indicated for further clarification. 5. Trace amount of free fluid within the presacral space. This critical result was discussed with Imer Joy MD at 4:15 PM on 04/24/2021 and it was ascertained that the content and urgency of the report was understood at the time of direct communication. Fleischner guidelines were followed. Chest CTA 04/24/21 15:43 IMPRESSION: No evidence of PE. No evidence of aortic dissection or aneurysm. Minimal right lower lobe atelectasis. Mild hepatic steatosis. Multiple right renal cysts VTE: negative Assessment and Plan (1) Hematemesis: Status: Acute (2) Anemia: Status: Acute (3) Acute pancreatitis: Status: Acute (4) Acute gout of left knee: Status: Acute Plan A 61 years old male with PMH of chronic pancreatitis, alcohol abuse, fatty liver, gastric bypass surgery, atrial fibrillation, alcoholic cardiomyopathy s\p AICD among others who presented to the hospital complaining of abdominal pain and hematemesis. Acute pancreatitis Reported by CT scan Changes concerning for possible tail of pancreas mass Cannot get MRI as AICD not MR friendly? Start IV fluid Morphine for pain control GI to evaluate Hematemesis One incidents, could be secondary to Valentine-Triana tear or ulcer Less likely esophageal varices Monitor H&H Start IV pantoprazole Hold anticoagulation for EGD in 48 hours Acute gout attack of left knee Avoid NSAIDs To give colchicine History of AFib Continue amiodarone, metoprolol Hold Eliquis Type 2 diabetes Diabetic diet SSI DVT PPX SCDs Quality Stroke Does the patient have a stroke diagnosis?: No VTE Prior VTE?: No VTE Risk Level:: Medical - moderate - high VTE Device Contraindication: Treatment Not Indicated VTE Drug Contraindication: Treatment Not Indicated
[2021-04-24] MEDS: Pantoprazole Sodium 40 MG/10 ML VIAL 80 MG IVPUSH (17:38)
[2021-04-24 17:56] LABS: Hematocrit 29.5 % (42.0-52.0); Hemoglobin 10.1 g/dl (14.0-18.0)
[2021-04-24] MEDS: Colchicine 0.6 MG TABLET 1.2 MG PO (19:22)
[2021-04-24] MEDS: Metoprolol Tartrate 50 MG TABLET PO (19:22)
[2021-04-24] MEDS: Sodium Chloride 0.45 % 1,000 ML 100 ML IVCONT (19:27)
[2021-04-24 22:13] LABS: Glucose, Whole Blood 114 mg/dL (60-115)
[2021-04-24] MEDS: Colchicine 0.6 MG TABLET PO (22:40)
--- NOTE | 2021-04-24 23:48 | PC.NURSE ---
Pt resting on stretcher in NAD, breathing with ease on RA, VSS. Pt aaox4, denies pain/discomfort, is pleasant and cooperative with pt care. Pt skin warm dry and appears slightly pale. Pt offers no complaints. Stretcher low locked, rails raised, call manuel within reach.
--- NOTE | 2021-04-25 01:30 | PC.NURSE ---
Report given to Tanja BRADFORD in Overflow
[2021-04-25] MEDS: Morphine Sulfate 4 MG/ML CARTRIDGE IVPUSH ×4 (01:53→20:16)
[2021-04-25] MEDS: Sodium Chloride 0.45 % 1,000 ML 100 ML IVCONT ×2 (05:57→14:04)
[2021-04-25] MEDS: Pantoprazole Sodium 40 MG/10 ML VIAL IVPUSH ×2 (05:58→18:45)
[2021-04-25] MEDS: ondansetron HCL 4 MG/2 ML VIAL IVPUSH (06:04)
[2021-04-25 08:00] VITALS: BP 126/83; PULSE 96; RESP 18; O2SAT 96
[2021-04-25 08:13] LABS: Hematocrit 27.2 % (42.0-52.0); Hemoglobin 9.3 g/dl (14.0-18.0); Mean Corpuscular HGB Conc 34.2 g/dl (31.0-36.0); Mean Corpuscular Hemoglobin 33.9 pg (27.0-33.0); Mean Corpuscular Volume 99.3 fL (80.0-98.0); Mean Platelet Volume 10.7 fL (9.4-12.4); Platelet Count 104 X10*3/uL (160-400); Red Blood Count 2.74 X10*6/uL (4.60-5.80); Red Cell Distribution Width 18.5 % (11.0-16.0); White Blood Count 5.9 X10*3/uL (4.8-10.8)
[2021-04-25 08:18] LABS: Glucose, Whole Blood 126 mg/dL (60-115)
[2021-04-25 08:44] LABS: Alanine Aminotransferase 20 U/L (0-40); Albumin Level 2.1 g/dL (3.5-5.0); Alkaline Phosphatase 85 U/L (39-117); Anion Gap 12 (12-20); Aspartate Amino Transferase 32 U/L (5-37); Bilirubin Direct 1.3 mg/dL (0.0-0.5); Bilirubin Total 1.7 mg/dL (0.0-1.0); Blood Urea Nitrogen 9 mg/dL (9-16); Calcium 7.4 mg/dL (8.4-10.2); Carbon Dioxide 23 mmol/L (22-29); Chloride 105 mmol/L (96-108); Creatinine Clr Calc Pharmacy 111.2; Estimated Glomerular Filt Rate > 60; Glucose Random 162 mg/dL (60-115); Potassium 3.8 mmol/L (3.3-5.1); Sodium 136 mmol/L (135-145); Total Protein 4.7 g/dL (6.5-8.0)
[2021-04-25] MEDS: Amiodarone HCL 200 MG TABLET PO (09:41)
[2021-04-25] MEDS: Atorvastatin Calcium 10 MG TABLET PO (09:41)
[2021-04-25] MEDS: Metoprolol Tartrate 50 MG TABLET PO ×2 (09:41→20:16)
[2021-04-25] MEDS: Magnesium Oxide 400 MG TABLET PO (09:41)
[2021-04-25] MEDS: Colchicine 0.6 MG TABLET PO ×2 (09:41→20:16)
[2021-04-25] MEDS: 0.9 % Sodium Chloride Flush 3 ML SYRINGE IVFLUSH ×2 (09:42→22:24)
--- NOTE | 2021-04-25 09:52 | PM.GICN ---
History of Present Illness Data of Consult Service Date: 04/25/21 Requesting physician: Ivan Hyde Primary Care Provider: Unknown Physician HPI Reason for consult: abdominal pain, hematemesis, pancreatic mass 61 YM came to [facility] on 04/24/21 with Abdominal pain, hematemesis. Pt is [place] [facility] [place] A 61 years old male with PMH of chronic pancreatitis, alcohol abuse, fatty liver, gastric bypass surgery, atrial fibrillation, alcoholic cardiomyopathy among others who presented to the hospital complaining of abdominal pain and hematemesis.? The patient was discharged recently from [facility] as he was evaluated for abdominal pain treated as acute pancreatitis and discharged to SNF.? He reports worsening knee pain over the last few days as he is not taking any active medications for the gout attack he is having.? This morning he started to have an episode of bloody vomitus associated with abdominal pain.? It was 1 incident and did not happened again since then. In the emergency CT scan was consistent with tail of pancreas inflammation and possible mass.? Hemoglobin noticed to be stable since last hospital admission . Admitted for further evaluation and treatment. Pt reports he was diagnosed with pancreatitis during a previous admission at [facility] with abdominal pain a few months ago He complains of constant 8/10 abdominal pain with bloating. He has frequent nausea and is unable to eat when he has nausea On 04/24 early am, after he had some coffee, he started coughing and choking then threw up white mucus. This was followed by a vomiting consisting of a cupful of bright red blood. He has not vomited any more blood since Patient complains of intermittent heartburn and chest pain which he attributes to cardiac defibrillator. He has 2 non bloody BM a day. Denies recent change in bowel habits, constipation, diarrhea, black stools or rectal bleeding. He admits to weight loss from 262-251 lbs Patient denies major cardiac or pulmonary problems, loud snoring or sleep apnea Denies problems with anesthesia in the past. Denies being on chronic anticoagulation. 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 He plays several instruments. Patient's Dad had colon polyps. Pt denies known family history of colon cancer or other GI malignancies. PAST EGD/COLONOSCOPY: Pt reports having an E[place] and [place] [facility] and a bleeding site in the stomach was treated. I will obtain records IMAGING STUDIES: 04/24/[address] SCAN SHOWED: 1. Abnormal study showing 2.3 cm maximum dimension hypodense lesion at the tail of the pancreas with subtle peripancreatic inflammatory changes around the tail, may represent focal pancreatitis versus distal pancreatic neoplasm with superimposed focal pancreatitis. This is a new finding since 08/06/2020. 2. Trace amount of left-sided pleural effusion and significant atherosclerotic coronary arterial disease. 3. Diffuse hepatic hypodensity consistent with severe hepatic steatosis. No superimposed focal liver lesion. 4. Short segment narrowing of the distal sigmoid colon, may represent focal peristalsis versus neoplasm. Significant fecal residual is noted within the remainder of the sigmoid colon as well as within the rectum. If the patient hasn't had any recent colonoscopy, follow-up colonoscopy would be indicated for further clarification. 5. Trace amount of free fluid within the presacral space. Review of Systems Constitutional: Constitutional: Denies chills, Denies fever(s) and Denies weakness Cardiovascular: Cardiovascular: Denies chest pain and Denies dyspnea Respiratory: Respiratory: Denies cough and Denies dyspnea Gastrointestinal: Gastrointestinal: Reports abdominal pain, Reports nausea and Reports hematemesis Genitourinary: Genitourinary: Reports no additional male genitourinary complaints Musculoskeletal: Musculoskeletal: Reports arthralgias (knee pain) Neurologic: Denies weakness [facility] Past Medical History Medical History Afib Diabetes HTN (hypertension) Family History Family History Mother Hypertension Surgical History Surgical History H/O coronary artery bypass surgery History of implantable cardiac defibrillator (ICD) Social History Social History Household Members: None Housing: Senior Living Do you presently have visiting nurse or other home services: Yes Patient Tobacco Use Status: Never used Tobacco service: No Current occupational status: disabled Meds Allergies Allergy/AdvReac Type Severity Reaction Status Date / Time No Known Allergies Allergy Verified 08/06/20 16:12 Active Medications: Current Medications Acetaminophen (Acetaminophen 325 Mg Tablet) 650 mg PO Q6H PRN PRN Reason: Pain, Mild (Pain Scale 1-3) Amiodarone HCl (Amiodarone Hcl 200 Mg Tablet) 200 mg PO DAILY [facility] Last Admin: 04/25/21 09:41 Dose: 200 mg Documented by: Atorvastatin Calcium (Atorvastatin Calcium 10 Mg Tablet) 10 mg PO DAILY [facility] Last Admin: 04/25/21 09:41 Dose: 10 mg Documented by: Colchicine (Colchicine 0.6 Mg Tablet) 0.6 mg PO BID [facility] Last Admin: 04/25/21 09:41 Dose: 0.6 mg Documented by: Sodium Chloride () 1,000 mls @ 100 mls/hr IVCONT .Q10H [facility] Stop: 04/25/21 22:59 Last Admin: 04/25/21 05:57 Dose: 100 mls/hr Documented by: Insulin Human Lispro (Insulin Lispro 100 Unit/Ml 3 Ml Vial) 0 unit SUBCUT QIDACHS [facility]; Protocol Last Admin: 04/25/21 08:43 Dose: Not Given Documented by: Lorazepam (Lorazepam 0.5 Mg Tablet) 0.5 mg PO Q8H PRN PRN Reason: Delirium Magnesium Oxide (Magnesium Oxide 400 Mg Tablet) 400 mg PO DAILY [facility] Last Admin: 04/25/21 09:41 Dose: 400 mg Documented by: Metoprolol Tartrate (Metoprolol Tartrate 50 Mg Tablet) 50 mg PO BID [facility]; Protocol Last Admin: 04/25/21 09:41 Dose: 50 mg Documented by: Morphine Sulfate (Morphine Sulfate 4 Mg/Ml Cartridge) 4 mg IVPUSH Q4H PRN; Protocol PRN Reason: Pain, Severe (Pain Scale 7-10) Last Admin: 04/25/21 06:03 Dose: 4 mg Documented by: Ondansetron HCl (Ondansetron Hcl 4 Mg/2 Ml Vial) 4 mg IVPUSH Q8H PRN PRN Reason: Nausea and Vomiting Last Admin: 04/25/21 06:04 Dose: 4 mg Documented by: Pantoprazole Sodium (Pantoprazole Sodium 40 Mg/10 Ml Vial) 40 mg IVPUSH BID@0630,1630 [facility] Last Admin: 04/25/21 05:58 Dose: 40 mg Documented by: Pharmacy Consult (Consult Rx Perform Med Rec) 1 each MISCELLANE ONCE PRN PRN Reason: Consult order Sodium Chloride (0.9 % Sodium Chloride Flush 3 Ml Syringe) 3 ml IVFLUSH QSHIFT [facility] Last Admin: 04/25/21 09:42 Dose: 3 ml Documented by: Home Medications Medication Instructions Recorded Confirmed Last Taken Type acetaminophen 325 mg tablet 650 mg PO Q6H PRN 04/24/21 04/24/21 Unknown History amiodarone 200 mg tablet 1 tab PO DAILY 04/24/21 04/24/21 Unknown History apixaban 5 mg tablet (Eliquis) 1 tab PO BID 04/24/21 04/24/21 Unknown History atorvastatin 10 mg tablet 1 tab PO DAILY 04/24/21 04/24/21 Unknown History glipizide 10 mg tablet, extended 1 tab PO DAILY 04/24/21 04/24/21 Unknown History release 24 hr hydrocortisone 1 %-iodoquinol 1 % 1 appl TOPICAL DAILY PRN 04/24/21 04/24/21 Unknown History topical cream insulin lispro 100 unit/mL 1 sliding scale dose SUBCUT 04/24/21 04/24/21 Unknown History subcutaneous solution (Humalog USEASDIRECTD U-100 Insulin) [id number] 1 cap PO DAILY 04/24/21 04/24/21 Unknown History 20,000-63,000-84,000 unit capsule, delayed rel (Zenpep) lorazepam 0.5 mg tablet 0.5 mg PO Q8H PRN 04/24/21 04/24/21 Unknown History magnesium oxide 400 mg PO DAILY 04/24/21 04/24/21 Unknown History metoprolol tartrate 50 mg tablet 1 tab PO BID 04/24/21 04/24/21 Unknown History oxycodone 5 mg capsule 5 mg PO Q6H PRN 04/24/21 04/24/21 Unknown History pantoprazole 40 mg tablet,delayed 1 tab PO DAILY 04/24/21 04/24/21 Unknown History release Physical Exam Vital Signs: Vital Signs: Last Vital Signs Temp 98.6 F 04/24/21 23:46 Pulse 96 04/25/21 08:00 Resp 18 04/25/21 08:00 BP 126/83 04/25/21 08:00 Pulse Ox 96 04/25/21 08:00 BMI result Body Mass Index 34.8 Const: General: no acute distress and ill appearing Nutritional Appearance: obese Orientation/consciousness: patient oriented x3 Limitations: no limitations HENMT: Head: Yes normal to inspection Ears: hearing grossly normal bilaterally Mouth: Normal oral and palatal mucosa present Eyes: Sclerae: sclerae normal Pupils: Equal, round and reactive pupils present Neck: Neck: Yes normal visual inspection Chest: Chest palpation & inspection: normal inspection of the chest Resp: Effort & Inspection: normal respiratory effort Auscultation: clear to auscultation bilaterally Cardio: Palpation: normal PMI Rate: regular rate Rhythm: regular rhythm Heart sounds: S1 normal heart sound present, S2 normal heart sound present and no murmurs GI: Palpation (GI): Soft to palpation, Tenderness to palpation present (GI) (Diffuse upper abdominal tenderness without rebound) and No hepatosplenomegaly present Auscultation: normal bowel sounds Rectal Exam - Male: Yes deferred Skin: General skin exam: no rashes or lesions noted Neuro: General: patient oriented x3, gait normal and moves all extremities Cranial nerves: Yes Equal, round and reactive pupils present Psych: Appearance: grossly normal Mental Status: mental status grossly normal Results Labs CBC & Chem 7: 04/27/21 06:14 04/27/21 06:14 Labs: Short CBC 04/24/21 04/24/21 04/25/21 Range/Units 13:35 17:50 07:20 WBC 6.8 5.9 (4.8-10.8) X10*3/uL Hgb 10.5 L 10.1 L 9.3 L (14.0-18.0) g/dl Hct 31.2 L 29.5 L 27.2 L (42.0-52.0) % Plt Count 118 L 104 L (160-400) X10*3/uL BMP 04/24/21 04/25/21 11:47 07:20 Sodium 139 136 Potassium 5.2 H 3.8 D Chloride 105 105 Carbon Dioxide 20 L 23 BUN 9 9 Creatinine 1.01 0.87 Calcium 8.5 7.4 L D Liver Function 04/24/21 04/25/21 Range/Units 11:47 07:20 Total Bilirubin 1.8 H 1.7 H (0.0-1.0) mg/dL Direct Bilirubin 1.3 H (0.0-0.5) mg/dL AST 62 H 32 D (5-37) U/L ALT 28 20 (0-40) U/L Alkaline Phosphatase 111 85 D (39-117) U/L Albumin 2.7 L D 2.1 L D (3.5-5.0) g/dL Urine 04/24/21 Range/Units 11:47 Urine Color YELLOW Urine Appearance CLEAR Urine pH 7.5 (5.0-8.0) Ur Specific [place] 1.010 (1.005-1.025) Urine Protein NEG (NEG-TRACE) MG/DL Urine Glucose (UA) NEG (NEG) MG/DL Assessment and Plan (1) Hematemesis: Status: Acute (2) Anemia: Status: Acute (3) Acute pancreatitis: Status: Acute Plan 61 years old male with hx of chronic pancreatitis, alcohol abuse, fatty liver, gastric bypass surgery, atrial fibrillation, alcoholic cardiomyopathy admitted with abdominal pain and hematemesis.? The patient was discharged recently from [facility] as he was evaluated for abdominal pain treated as acute pancreatitis and discharged to SNF.? Pt [place] [facility] [place] He had an episode of hematemsis on the morning of admission and no recurrent bleeding since.? Hemoglobin noticed to be stable since last hospital admission. 04/24/[address] scan showed a 2.3 cm hypodense lesion in the tail of the pancreas with subtle peripancreatic inflammatory changes around the tail, ? focal pancreatitis versus distal pancreatic neoplasm with superimposed focal pancreatitis. (new finding since 08/06/2020). He admits to weight loss from 262-251 lbs. Normal CEA and CA 19-9 is pending RECOMMENDATIONS: 1. Agree with IV PPI, antiemetics and pain medicine. 2. Proceed with EGD on 04/26/21 - procedure and potential complications were reviewed with the patient. 3. Pt will need FU of pancreatic mass with serial imaging/EUS - he was advised to see his primary GI [place] [facility] [place] FU of chronic pancreatitis and pancreatic mass Procedures Date of Service Date of Service: 04/25/21
--- NOTE | 2021-04-25 12:13 | PC.NURSE ---
Pt is A&Ox3, no complaints of pain at this time, NSR on monitor, IJ in R neck, blood drawn by this RN this morning.Pt medicated as per MAR orders. Lungs diminished in the bases, denies any and pain/N/V at this time. Pt refused breafast tray, states he is too concerned it will make him vomit blood again, made aware, diet changed to full liquid. Call manuel within reach. Will contineu to monitor.
--- NOTE | 2021-04-25 12:24 | MHC.CM.PN ---
PT REPORTS HE LIVES ALONE BUT HAS VISUAL COORDINATOR SERVICES EVERY DAY FROM THE TIME HE GETS UP UNTIL AFTER HE GOES TO BED. PT REPORTS HE DOES NOT HAVE A VNA AT THIS TIME BUT WOULD BE INTERESTED IN ONE AT [place]. PT REPORTS HIS PCP IS AT [address] [place] [address] IN [place], HE THINKS HIS NAME IS DR ALLISON. PT REPORTS HIS SON, SAMI BRAY IS HIS HCP, COPY REQUESTED PT IS NOT COVID-19 VACCINATED IMM DELIVERED, COPY SENT TO [facility] CURRENT DC PLAN IS HOME WITH RESUMPTION OF VISUAL COORDINATOR SERVICES AND POSSIBLE NEW VNA PT WILL NEED CHAIR VAN TRANSPORT
--- NOTE | 2021-04-25 12:26 | HO.PM.IMPN ---
Subjective Subjective Date of Service: 04/25/21 Interval History: the patient was seen and evaluated this morning Laying in bed, feels better than yesterday but still having abdominal discomfort Reporting vomiting once but no blood with it Knee pain improved Denies any fever, chills or shortness of breath No reported other overnight events. Review of Systems No fever, chills or weakness No chest pain, palpitation No shortness of breath or coughing Complaining of generalized abdominal pain, n not an episode of vomiting No urinary symptoms No any rash or wounds Complaining of knee pain but overall improved Physical Exam Vital Signs: Vital Signs: Last Vital Signs Temp 98.6 F 04/24/21 23:46 Pulse 96 04/25/21 08:00 Resp 18 04/25/21 08:00 BP 126/83 04/25/21 08:00 Pulse Ox 96 04/25/21 08:00 BMI result Body Mass Index 34.8 Const: Other: Constitutional : Alert, oriented, not in distress Neck : Normal inspection, Supple Cardiovascular : RRR, S1 S2, no lower extremity edema Respiratory : Fair bilateral air entry, no crackles, wheezes or rhonchi Gastrointestinal: soft, lax, decreased bowel sounds, epigastric tenderness with deep palpation, no surgical signs Skin : Warm, Dry Neurological : Alert & oriented x3, No focal deficit Extremities: Left knee decreased mild effusion with less tenderness, no erythema noted. Objective Data Active Medications Acetaminophen (Acetaminophen 325 Mg Tablet) 650 mg PO Q6H PRN PRN Reason: Pain, Mild (Pain Scale 1-3) Amiodarone HCl (Amiodarone Hcl 200 Mg Tablet) 200 mg PO DAILY [facility] Last Admin: 04/25/21 09:41 Dose: 200 mg Documented by: HALIMA Atorvastatin Calcium (Atorvastatin Calcium 10 Mg Tablet) 10 mg PO DAILY [facility] Last Admin: 04/25/21 09:41 Dose: 10 mg Documented by: HALIMA Colchicine (Colchicine 0.6 Mg Tablet) 0.6 mg PO BID [facility] Last Admin: 04/25/21 09:41 Dose: 0.6 mg Documented by: HALIMA Sodium Chloride () 1,000 mls @ 100 mls/hr IVCONT .Q10H [facility] Stop: 04/25/21 22:59 Last Admin: 04/25/21 05:57 Dose: 100 mls/hr Documented by: NILDA Insulin Human Lispro (Insulin Lispro 100 Unit/Ml 3 Ml Vial) 0 unit SUBCUT QIDACHS [facility]; Protocol Last Admin: 04/25/21 08:43 Dose: Not Given Documented by: HALIMA Non-Admin Reason: No Insulin Coverage Lorazepam (Lorazepam 0.5 Mg Tablet) 0.5 mg PO Q8H PRN PRN Reason: Delirium Magnesium Oxide (Magnesium Oxide 400 Mg Tablet) 400 mg PO DAILY [facility] Last Admin: 04/25/21 09:41 Dose: 400 mg Documented by: HALIMA Metoprolol Tartrate (Metoprolol Tartrate 50 Mg Tablet) 50 mg PO BID [facility]; Protocol Last Admin: 04/25/21 09:41 Dose: 50 mg Documented by: HALIMA Morphine Sulfate (Morphine Sulfate 4 Mg/Ml Cartridge) 4 mg IVPUSH Q4H PRN; Protocol PRN Reason: Pain, Severe (Pain Scale 7-10) Last Admin: 04/25/21 06:03 Dose: 4 mg Documented by: NILDA Ondansetron HCl (Ondansetron Hcl 4 Mg/2 Ml Vial) 4 mg IVPUSH Q8H PRN PRN Reason: Nausea and Vomiting Last Admin: 04/25/21 06:04 Dose: 4 mg Documented by: NILDA Pantoprazole Sodium (Pantoprazole Sodium 40 Mg/10 Ml Vial) 40 mg IVPUSH BID@0630,1630 [facility] Last Admin: 04/25/21 05:58 Dose: 40 mg Documented by: NILDA Pharmacy Consult (Consult Rx Perform Med Rec) 1 each MISCELLANE ONCE PRN PRN Reason: Consult order Sodium Chloride (0.9 % Sodium Chloride Flush 3 Ml Syringe) 3 ml IVFLUSH QSHIFT [facility] Last Admin: 04/25/21 09:42 Dose: 3 ml Documented by: HALIMA Labs CBC & Chem 7: 04/25/21 07:20 04/25/21 07:20 Labs: Laboratory Results - last 24 hr 04/24/21 04/24/21 04/24/21 11:47 11:47 11:47 MCV MCH MCHC RDW Plt Count MPV Immature Gran % (Auto) Neut % (Auto) Lymph % (Auto) [place] % (Auto) Eos % (Auto) Baso % (Auto) Lymph # (Auto) [place] # (Auto) Eos # (Auto) Baso # (Auto) Abs Immat Gran (auto) Absolute Neuts (auto) Absolute Nucleated RBC Nucleated RBC % (auto) PT INR APTT D-Dimer High Sensitivty Anion Gap 19 Estim Creat Clear Calc 95.8 Estimated GFR > 60 POC Glucose Random Glucose 100 D Lactic Acid Calcium 8.5 Total Bilirubin 1.8 H Direct Bilirubin AST 62 H ALT 28 Alkaline Phosphatase 111 Total Protein 6.5 Albumin 2.7 L D Lipase 10 Carcinoembryonic Ag Urine Color YELLOW Urine Appearance CLEAR Urine pH 7.5 Ur Specific [place] 1.010 Urine Protein NEG Urine Glucose (UA) NEG Urine Ketones 15 Urine Blood NEG Urine Nitrite NEG Ur Leukocyte Esterase NEG COVID-19 ([facility]) Negative COVID-19 Clin Com See Note Blood Type Antibody Screen 04/24/21 04/24/21 04/24/21 13:35 13:35 13:35 MCV 100.3 H MCH 33.8 H MCHC 33.7 RDW 19.2 H Plt Count 118 L MPV 10.1 Immature Gran % (Auto) 0.3 Neut % (Auto) 79.5 H Lymph % (Auto) 9.6 L [place] % (Auto) 10.2 Eos % (Auto) 0.1 Baso % (Auto) 0.3 Lymph # (Auto) 0.7 L [place] # (Auto) 0.7 Eos # (Auto) 0.0 Baso # (Auto) 0.0 Abs Immat Gran (auto) 0.02 Absolute Neuts (auto) 5.4 Absolute Nucleated RBC 0.000 Nucleated RBC % (auto) 0.0 PT 15.1 H INR 1.3 H APTT 36.9 D-Dimer High Sensitivty < 150 Anion Gap Estim Creat Clear Calc Estimated GFR POC Glucose Random Glucose Lactic Acid 2.0 Calcium Total Bilirubin Direct Bilirubin AST ALT Alkaline Phosphatase Total Protein Albumin Lipase Carcinoembryonic Ag Urine Color Urine Appearance Urine pH Ur Specific [place] Urine Protein Urine Glucose (UA) Urine Ketones Urine Blood Urine Nitrite Ur Leukocyte Esterase COVID-19 ([facility]) COVID-19 [employer] Com Blood Type Antibody Screen 04/24/21 04/24/21 04/25/21 13:35 22:08 07:20 MCV 99.3 H MCH 33.9 H MCHC 34.2 RDW 18.5 H Plt Count 104 L MPV 10.7 Immature Gran % (Auto) Neut % (Auto) Lymph % (Auto) [place] % (Auto) Eos % (Auto) Baso % (Auto) Lymph # (Auto) [place] # (Auto) Eos # (Auto) Baso # (Auto) Abs Immat Gran (auto) Absolute Neuts (auto) Absolute Nucleated RBC 0.000 Nucleated RBC % (auto) 0.0 PT INR APTT D-Dimer High Sensitivty Anion Gap Estim Creat Clear Calc Estimated GFR POC Glucose 114 Random Glucose Lactic Acid Calcium Total Bilirubin Direct Bilirubin AST ALT Alkaline Phosphatase Total Protein Albumin Lipase Carcinoembryonic Ag Urine Color Urine Appearance Urine pH Ur Specific [place] Urine Protein Urine Glucose (UA) Urine Ketones Urine Blood Urine Nitrite Ur Leukocyte Esterase COVID-19 ([facility]) COVID-19 [employer] Blood Type O Positive Antibody Screen NEGATIVE 04/25/21 04/25/21 04/25/21 07:20 07:20 07:38 MCV MCH MCHC RDW Plt Count MPV Immature Gran % (Auto) Neut % (Auto) Lymph % (Auto) [place] % (Auto) Eos % (Auto) Baso % (Auto) Lymph # (Auto) [place] # (Auto) Eos # (Auto) Baso # (Auto) Abs Immat Gran (auto) Absolute Neuts (auto) Absolute Nucleated RBC Nucleated RBC % (auto) PT INR APTT D-Dimer High Sensitivty Anion Gap 12 Estim Creat Clear Calc 111.2 Estimated GFR > 60 POC Glucose 126 H Random Glucose 162 H D Lactic Acid Calcium 7.4 L D Total Bilirubin 1.7 H Direct Bilirubin 1.3 H AST 32 D ALT 20 Alkaline Phosphatase 85 D Total Protein 4.7 L D Albumin 2.1 L D Lipase Carcinoembryonic Ag 2.90 Urine Color Urine Appearance Urine pH Ur Specific [place] Urine Protein Urine Glucose (UA) Urine Ketones Urine Blood Urine Nitrite Ur Leukocyte Esterase COVID-19 ([facility]) COVID-19 [employer] Com Blood Type Antibody Screen Assessment and Plan (1) Hematemesis: Status: Acute (2) Acute pancreatitis: Status: Acute (3) Acute gout of left knee: Status: Acute Plan A 61 years old male with PMH of chronic pancreatitis, alcohol abuse, fatty liver, gastric bypass surgery, atrial fibrillation, alcoholic cardiomyopathy s\p AICD among others who presented to the hospital complaining of abdominal pain and hematemesis. Acute pancreatitis Reported by CT scan Changes concerning for possible tail of pancreas mass Cannot get MRI as AICD not MR friendly? Continue IV fluid Advanced diet to liquids Morphine for pain control GI to evaluate Hematemesis One incidents, could be secondary to Valentine-Triana tear or ulcer Less likely esophageal varices Monitor H&H Continue IV pantoprazole Hold anticoagulation for EGD in 48 hours Acute gout attack of left knee Seems improving Avoid NSAIDs Continue colchicine History of AFib Continue amiodarone, metoprolol Hold Eliquis Type 2 diabetes Diabetic diet SSI DVT PPX SCDs Quality Stroke Does the patient have a stroke diagnosis?: No VTE Prior VTE?: No VTE Risk Level:: Medical - moderate - high VTE Device Contraindication: Treatment Not Indicated VTE Drug Contraindication: Treatment Not Indicated
[2021-04-25 13:44] LABS: Glucose, Whole Blood 111 mg/dL (60-115)
[2021-04-25 14:42] VITALS: BP 125/81; PULSE 86; RESP 12; TEMP 36.9; O2SAT 98
--- NOTE | 2021-04-25 15:57 | PM.CNCAR ---
History of Present Illness History of Present Illness Date of Service: 04/25/21 Chief complaint: Abd pain, Hematemsis Narrative: This is a cardiology consultation regarding preoperative risk stratification for endoscopy. It seems that patient has a history of alcoholic cardiomyopathy. He also has a defibrillator in place. There is also history of atrial fibrillation for which he is on amiodarone as well as Eliquis. He states he goes to Cardiology at [facility] and was seen about a month ago or so. However no clear information is available. From the cardiac standpoint, he states he has not really had any recent issues. He is not able to walk much more so from knees as opposed to shortness of breath. Some random chest pains at various times but nonexertional. Unknown coronary status. He is currently admitted for hematemesis and abdominal pain. He also has a diagnosis of pancreatitis. Plans to go for EGD tomorrow and we have been asked to see for preoperative evaluation. Review of Systems Review of Systems: Yes all other systems are reviewed and are negative Cardiovascular: Cardiovascular: Reports as per HPI, Reports no additional cardiovascular complaints, Denies acrocyanosis, Denies cool extremities, Denies chest pain, Denies diaphoresis, Denies syncope, Denies claudication, Denies leg edema, Denies lightheadedness, Denies palpitations and Denies dyspnea Respiratory: Respiratory: Denies dyspnea Neurologic: Denies syncope Endocrine: Endocrine: Denies palpitations PMFSH Past Medical History Medical History (Updated 04/25/21 @ 16:03 by Davidson Canchola MD) Afib Diabetes HTN (hypertension) Family History Family History Mother Hypertension Surgical History Surgical History (Updated 04/25/21 @ 15:41 by Zaida Monreal MD) H/O coronary artery bypass surgery History of implantable cardiac defibrillator (ICD) Social History Social History Advance Directives: No Advance Directives Information Provided: No service: No Current occupational status: disabled Meds Allergies Allergy/AdvReac Type Severity Reaction Status Date / Time No Known Allergies Allergy Verified 08/06/20 16:12 Active Medications: Current Medications Acetaminophen (Acetaminophen 325 Mg Tablet) 650 mg PO Q6H PRN PRN Reason: Pain, Mild (Pain Scale 1-3) Amiodarone HCl (Amiodarone Hcl 200 Mg Tablet) 200 mg PO DAILY [facility] Last Admin: 04/25/21 09:41 Dose: 200 mg Documented by: Atorvastatin Calcium (Atorvastatin Calcium 10 Mg Tablet) 10 mg PO DAILY [facility] Last Admin: 04/25/21 09:41 Dose: 10 mg Documented by: Colchicine (Colchicine 0.6 Mg Tablet) 0.6 mg PO BID [facility] Last Admin: 04/25/21 09:41 Dose: 0.6 mg Documented by: Sodium Chloride () 1,000 mls @ 100 mls/hr IVCONT .Q10H [facility] Stop: 04/25/21 22:59 Last Admin: 04/25/21 14:04 Dose: 100 mls/hr Documented by: Insulin Human Lispro (Insulin Lispro 100 Unit/Ml 3 Ml Vial) 0 unit SUBCUT QIDACHS [facility]; Protocol Last Admin: 04/25/21 13:53 Dose: Not Given Documented by: Lorazepam (Lorazepam 0.5 Mg Tablet) 0.5 mg PO Q8H PRN PRN Reason: Delirium Magnesium Oxide (Magnesium Oxide 400 Mg Tablet) 400 mg PO DAILY [facility] Last Admin: 04/25/21 09:41 Dose: 400 mg Documented by: Metoprolol Tartrate (Metoprolol Tartrate 50 Mg Tablet) 50 mg PO BID [facility]; Protocol Last Admin: 04/25/21 09:41 Dose: 50 mg Documented by: Morphine Sulfate (Morphine Sulfate 4 Mg/Ml Cartridge) 4 mg IVPUSH Q4H PRN; Protocol PRN Reason: Pain, Severe (Pain Scale 7-10) Last Admin: 04/25/21 14:04 Dose: 4 mg Documented by: Ondansetron HCl (Ondansetron Hcl 4 Mg/2 Ml Vial) 4 mg IVPUSH Q8H PRN PRN Reason: Nausea and Vomiting Last Admin: 04/25/21 06:04 Dose: 4 mg Documented by: Pantoprazole Sodium (Pantoprazole Sodium 40 Mg/10 Ml Vial) 40 mg IVPUSH BID@0630,1630 [facility] Last Admin: 04/25/21 05:58 Dose: 40 mg Documented by: Pharmacy Consult (Consult Rx Perform Med Rec) 1 each MISCELLANE ONCE PRN PRN Reason: Consult order Sodium Chloride (0.9 % Sodium Chloride Flush 3 Ml Syringe) 3 ml IVFLUSH QSHIFT [facility] Last Admin: 04/25/21 13:54 Dose: Not Given Documented by: Home Medications Medication Instructions Recorded Confirmed Last Taken Type acetaminophen 325 mg tablet 650 mg PO Q6H PRN 04/24/21 04/24/21 Unknown History amiodarone 200 mg tablet 1 tab PO DAILY 04/24/21 04/24/21 Unknown History apixaban 5 mg tablet (Eliquis) 1 tab PO BID 04/24/21 04/24/21 Unknown History atorvastatin 10 mg tablet 1 tab PO DAILY 04/24/21 04/24/21 Unknown History glipizide 10 mg tablet, extended 1 tab PO DAILY 04/24/21 04/24/21 Unknown History release 24 hr hydrocortisone 1 %-iodoquinol 1 % 1 appl TOPICAL DAILY PRN 04/24/21 04/24/21 Unknown History topical cream insulin lispro 100 unit/mL 1 sliding scale dose SUBCUT 04/24/21 04/24/21 Unknown History subcutaneous solution (Humalog USEASDIRECTD U-100 Insulin) [id number] 1 cap PO DAILY 04/24/21 04/24/21 Unknown History 20,000-63,000-84,000 unit capsule, delayed rel (Zenpep) lorazepam 0.5 mg tablet 0.5 mg PO Q8H PRN 04/24/21 04/24/21 Unknown History magnesium oxide 400 mg PO DAILY 04/24/21 04/24/21 Unknown History metoprolol tartrate 50 mg tablet 1 tab PO BID 04/24/21 04/24/21 Unknown History oxycodone 5 mg capsule 5 mg PO Q6H PRN 04/24/21 04/24/21 Unknown History pantoprazole 40 mg tablet,delayed 1 tab PO DAILY 04/24/21 04/24/21 Unknown History release Physical Exam Vital Signs: Vital Signs: Last Vital Signs Temp 98.4 F 04/25/21 14:42 Pulse 86 04/25/21 14:42 Resp 12 04/25/21 14:42 BP 125/81 04/25/21 14:42 Pulse Ox 98 04/25/21 14:42 BMI result Body Mass Index 34.8 Const: General: comfortable HENMT: Other: Unremarkable Neck: Neck: Yes normal visual inspection Chest: Chest palpation & inspection: normal inspection of the chest Resp: Auscultation: clear to auscultation bilaterally Cardio: Palpation: normal PMI Heart sounds: S1 normal heart sound present, S2 normal heart sound present, no gallops, no murmurs and no rubs GI: Palpation (GI): Soft to palpation Back/Spine/Pelvis: Other: unremarkable Skin: Lesions: other Neuro: General: other Extrem: General: Yes other Psych: Mental Status: other Objective Labs and Meds Result diagrams: 04/25/21 07:20 04/25/21 07:20 Lab results: Laboratory Results - last 24 hr 04/24/21 04/24/21 04/25/21 17:50 22:08 07:20 WBC 5.9 RBC 2.74 L Hgb 10.1 L 9.3 L Hct 29.5 L 27.2 L MCV 99.3 H MCH 33.9 H MCHC 34.2 RDW 18.5 H Plt Count 104 L MPV 10.7 Absolute Nucleated RBC 0.000 Nucleated RBC % (auto) 0.0 Sodium Potassium Chloride Carbon Dioxide Anion Gap BUN Creatinine Estim Creat Clear Calc Estimated GFR POC Glucose 114 Random Glucose Calcium Total Bilirubin Direct Bilirubin AST ALT Alkaline Phosphatase Total Protein Albumin Carcinoembryonic Ag 04/25/21 04/25/21 04/25/21 07:20 07:20 07:38 WBC RBC Hgb Hct MCV MCH MCHC RDW Plt Count MPV Absolute Nucleated RBC Nucleated RBC % (auto) Sodium 136 Potassium 3.8 D Chloride 105 Carbon Dioxide 23 Anion Gap 12 BUN 9 Creatinine 0.87 Estim Creat Clear Calc 111.2 Estimated GFR > 60 POC Glucose 126 H Random Glucose 162 H D Calcium 7.4 L D Total Bilirubin 1.7 H Direct Bilirubin 1.3 H AST 32 D ALT 20 Alkaline Phosphatase 85 D Total Protein 4.7 L D Albumin 2.1 L D Carcinoembryonic Ag 2.90 04/25/21 13:39 WBC RBC Hgb Hct MCV MCH MCHC RDW Plt Count MPV Absolute Nucleated RBC Nucleated RBC % (auto) Sodium Potassium Chloride Carbon Dioxide Anion Gap BUN Creatinine Estim Creat Clear Calc Estimated GFR POC Glucose 111 Random Glucose Calcium Total Bilirubin Direct Bilirubin AST ALT Alkaline Phosphatase Total Protein Albumin Carcinoembryonic Ag ECG Interpretation: EKG with sinus tachycardia, 103/Min; incomplete left bundle-branch block pattern. Possible LVH. Nonspecific ST-T changes. Imaging Radiologist's impression: Impressions Abdomen/Pelvis CT 04/24/21 15:43 IMPRESSION: 1. Abnormal study showing 2.3 cm maximum dimension hypodense lesion at the tail of the pancreas with subtle peripancreatic inflammatory changes around the tail, may represent focal pancreatitis versus distal pancreatic neoplasm with superimposed focal pancreatitis. This is a new finding since 08/06/2020. 2. Trace amount of left-sided pleural effusion and significant atherosclerotic coronary arterial disease. 3. Diffuse hepatic hypodensity consistent with severe hepatic steatosis. No superimposed focal liver lesion. 4. Short segment narrowing of the distal sigmoid colon, may represent focal peristalsis versus neoplasm. Significant fecal residual is noted within the remainder of the sigmoid colon as well as within the rectum. If the patient hasn't had any recent colonoscopy, follow-up colonoscopy would be indicated for further clarification. 5. Trace amount of free fluid within the presacral space. This critical result was discussed with Imer Joy MD at 4:15 PM on 04/24/2021 and it was ascertained that the content and urgency of the report was understood at the time of direct communication. Fleischner guidelines were followed. Chest CTA 04/24/21 15:43 IMPRESSION: No evidence of PE. No evidence of aortic dissection or aneurysm. Minimal right lower lobe atelectasis. Mild hepatic steatosis. Multiple right renal cysts VTE: negative Assessment and Plan (1) Preoperative cardiovascular examination: Status: Acute (2) Cardiomyopathy: Status: Acute (3) ICD (implantable cardioverter-defibrillator) in place: Status: Acute (4) PAF (paroxysmal atrial fibrillation): Status: Acute Plan High sensitivity troponin within normal limits. In the chest CT, reported to have normal heart size and no pericardial effusion or other cardiac findings. In the abdomen CT, there is description of atherosclerotic disease in the aorta and branches. Based on history, alcoholic cardiomyopathy, defibrillator placement, atrial fibrillation. Unknown coronary status. 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 Overall, do not see any obvious cardiac contraindications to proceed with endoscopy, as he clinically seems compensated; but will make a definitive note after review of the above. Procedures Date of Service Date of Service: 04/25/21
[2021-04-25 18:29] LABS: Glucose, Whole Blood 155 mg/dL (60-115)
[2021-04-25 21:02] LABS: Glucose, Whole Blood 116 mg/dL (60-115)
[2021-04-25 21:39] VITALS: BP 116/76; PULSE 85; RESP 18; TEMP 36.8; O2SAT 98
[2021-04-25 21:41] LABS: Glucose, Whole Blood 128 mg/dL (60-115)
[2021-04-25 22:12] VITALS: BMI 32.2
[2021-04-26] VITALS (11 sets, daily range): BP systolic 101–129; BP diastolic 61–92; PULSE 82–120; RESP 16–20; TEMP 36.1–37.7; O2SAT 94–100
[2021-04-26] MEDS: Pantoprazole Sodium 40 MG/10 ML VIAL IVPUSH ×2 (05:39→17:18)
[2021-04-26] MEDS: Morphine Sulfate 4 MG/ML CARTRIDGE IVPUSH ×4 (05:39→22:51)
[2021-04-26 06:23] LABS: Hematocrit 28.4 % (42.0-52.0); Hemoglobin 9.8 g/dl (14.0-18.0); Mean Corpuscular HGB Conc 34.5 g/dl (31.0-36.0); Mean Corpuscular Hemoglobin 33.8 pg (27.0-33.0); Mean Corpuscular Volume 97.9 fL (80.0-98.0); Mean Platelet Volume 10.8 fL (9.4-12.4); Platelet Count 104 X10*3/uL (160-400); Red Cell Distribution Width 17.6 % (11.0-16.0); White Blood Count 5.8 X10*3/uL (4.8-10.8)
[2021-04-26 06:33] LABS: Anion Gap 11 (12-20); Blood Urea Nitrogen 8 mg/dL (9-16); Calcium 7.3 mg/dL (8.4-10.2); Carbon Dioxide 24 mmol/L (22-29); Chloride 105 mmol/L (96-108); Creatinine Clr Calc Pharmacy 112.2; Estimated Glomerular Filt Rate > 60; Glucose Random 104 mg/dL (60-115); Potassium 3.7 mmol/L (3.3-5.1); Sodium 136 mmol/L (135-145)
[2021-04-26 07:56] LABS: Glucose, Whole Blood 94 mg/dL (60-115)
[2021-04-26] MEDS: Metoprolol Tartrate 50 MG TABLET PO ×2 (09:44→21:00)
[2021-04-26] MEDS: 0.9 % Sodium Chloride Flush 3 ML SYRINGE IVFLUSH ×3 (09:44→21:01)
[2021-04-26] MEDS: Magnesium Oxide 400 MG TABLET PO (09:44)
[2021-04-26] MEDS: Colchicine 0.6 MG TABLET PO ×2 (09:44→21:01)
[2021-04-26] MEDS: Amiodarone HCL 200 MG TABLET PO (09:44)
[2021-04-26] MEDS: Atorvastatin Calcium 10 MG TABLET PO (09:44)
--- NOTE | 2021-04-26 11:35 | P.PNIM_ITS ---
Subjective Subjective Date of Service: 04/26/21 Interval History: The patient was seen and evaluated this morning Laying in bed, feels better with improvement of abdominal pain No more vomiting Knee pain improved Denies any fever, chills or shortness of breath No reported other overnight events. Review of Systems No fever, chills or weakness No chest pain, palpitation No shortness of breath or coughing Abdominal pain improving No urinary symptoms No any rash or wounds Complaining of knee pain but overall improved Physical Exam Vital Signs: Vital Signs: Last Vital Signs Temp 96.9 F 04/26/21 10:59 Pulse 88 04/26/21 10:59 Resp 20 04/26/21 10:59 BP 113/79 04/26/21 10:59 Pulse Ox 94 04/26/21 10:59 BMI result Body Mass Index 32.2 Const: Other: Constitutional : Alert, oriented, not in distress Neck : Normal inspection, Supple Cardiovascular : RRR, S1 S2, no lower extremity edema Respiratory : Fair bilateral air entry, no crackles, wheezes or rhonchi Gastrointestinal: soft, lax, decreased bowel sounds, epigastric tenderness with deep palpation, no surgical signs Skin : Warm, Dry Neurological : Alert & oriented x3, No focal deficit Extremities: Left knee decreased mild effusion with less tenderness, no erythema noted. Objective Data Active Medications Acetaminophen (Acetaminophen 325 Mg Tablet) 650 mg PO Q6H PRN PRN Reason: Pain, Mild (Pain Scale 1-3) Amiodarone HCl (Amiodarone Hcl 200 Mg Tablet) 200 mg PO DAILY [facility] Last Admin: 04/26/21 09:44 Dose: 200 mg Documented by: KIMBERLY Atorvastatin Calcium (Atorvastatin Calcium 10 Mg Tablet) 10 mg PO DAILY [facility] Last Admin: 04/26/21 09:44 Dose: 10 mg Documented by: KIMBERLY Colchicine (Colchicine 0.6 Mg Tablet) 0.6 mg PO BID [facility] Last Admin: 04/26/21 09:44 Dose: 0.6 mg Documented by: KIMBERLY Insulin Human Lispro (Insulin Lispro 100 Unit/Ml 3 Ml Vial) 0 unit SUBCUT QIDACHS [facility]; Protocol Last Admin: 04/26/21 08:45 Dose: Not Given Documented by: KIMBERLY Non-Admin Reason: No Insulin Coverage Lorazepam (Lorazepam 0.5 Mg Tablet) 0.5 mg PO Q8H PRN PRN Reason: Delirium Magnesium Oxide (Magnesium Oxide 400 Mg Tablet) 400 mg PO DAILY [facility] Last Admin: 04/26/21 09:44 Dose: 400 mg Documented by: KIMBERLY Metoprolol Tartrate (Metoprolol Tartrate 50 Mg Tablet) 50 mg PO BID [facility]; Protocol Last Admin: 04/26/21 09:44 Dose: 50 mg Documented by: KIMBERLY Morphine Sulfate (Morphine Sulfate 4 Mg/Ml Cartridge) 4 mg IVPUSH Q4H PRN; Protocol PRN Reason: Pain, Severe (Pain Scale 7-10) Last Admin: 04/26/21 09:44 Dose: 4 mg Documented by: KIMBERLY Ondansetron HCl (Ondansetron Hcl 4 Mg/2 Ml Vial) 4 mg IVPUSH Q8H PRN PRN Reason: Nausea and Vomiting Last Admin: 04/25/21 06:04 Dose: 4 mg Documented by: NILDA Pantoprazole Sodium (Pantoprazole Sodium 40 Mg/10 Ml Vial) 40 mg IVPUSH BID@0630,1630 [facility] Last Admin: 04/26/21 05:39 Dose: 40 mg Documented by: AMITA Pharmacy Consult (Consult Rx Perform Med Rec) 1 each MISCELLANE ONCE PRN PRN Reason: Consult order Sodium Chloride (0.9 % Sodium Chloride Flush 3 Ml Syringe) 3 ml IVFLUSH QSHIFT [facility] Last Admin: 04/26/21 09:44 Dose: 3 ml Documented by: KIMBERLY Labs CBC & Chem 7: 04/26/21 05:32 04/26/21 05:32 Labs: Laboratory Results - last 24 hr 04/25/21 04/25/21 04/25/21 13:39 18:26 20:55 MCV MCH MCHC RDW Plt Count MPV Absolute Nucleated RBC Nucleated RBC % (auto) Anion Gap Estim Creat Clear Calc Estimated GFR POC Glucose 111 155 H 116 H Random Glucose Calcium 04/25/21 04/26/21 04/26/21 21:35 05:32 05:32 MCV 97.9 MCH 33.8 H MCHC 34.5 RDW 17.6 H Plt Count 104 L MPV 10.8 Absolute Nucleated RBC 0.000 Nucleated RBC % (auto) 0.0 Anion Gap 11 L Estim Creat Clear Calc 112.2 Estimated GFR > 60 POC Glucose 128 H Random Glucose 104 D Calcium 7.3 L 04/26/21 07:45 MCV MCH MCHC RDW Plt Count MPV Absolute Nucleated RBC Nucleated RBC % (auto) Anion Gap Estim Creat Clear Calc Estimated GFR POC Glucose 94 Random Glucose Calcium Assessment and Plan (1) Cardiomyopathy: Status: Acute (2) Hematemesis: Status: Acute (3) Acute pancreatitis: Status: Acute (4) Acute gout of left knee: Status: Acute Plan A 61 years old male with PMH of chronic pancreatitis, alcohol abuse, fatty liver, gastric bypass surgery, atrial fibrillation, alcoholic cardiomyopathy s\p AICD among others who presented to the hospital complaining of abdominal pain and hematemesis. Acute pancreatitis Reported by CT scan Changes concerning for possible tail of pancreas mass Cannot get MRI as AICD not MR friendly? Discontinue IV fluid Advanced diet after endoscopy Morphine for pain control GI to evaluate Hematemesis One incidents, could be secondary to Valentine-Triana tear or ulcer Less likely esophageal varices Monitor H&H Continue IV pantoprazole Hold anticoagulation for EGD in 48 hours Plan for EGD today Acute gout attack of left knee Seems improving Avoid NSAIDs Continue colchicine History of AFib Continue amiodarone, metoprolol Hold Eliquis Type 2 diabetes Diabetic diet SSI DVT PPX SCDs Quality Stroke Does the patient have a stroke diagnosis?: No VTE Prior VTE?: No VTE Risk Level:: Medical - moderate - high VTE Device Contraindication: Treatment Not Indicated VTE Drug Contraindication: Treatment Not Indicated
[2021-04-26 11:37] LABS: Glucose, Whole Blood 68 mg/dL (60-115)
[2021-04-26 11:37] LABS: Carbohydrate Antigen 19-9 <3 U/mL (<34)
[2021-04-26] MEDS: Dextrose 50 % 25 GM/50 ML SYRINGE IVPUSH (11:44)
--- NOTE | 2021-04-26 11:48 | MHC.CM.PN ---
Per ROUNDS discussion, Patient is having an upper Endoscopy today. Patient required IV Morphine today, and is on IV Protonix. CM will follow for medical clearance for dc (Pending PT eval).
[2021-04-26 12:14] LABS: Glucose, Whole Blood 114 mg/dL (60-115)
[2021-04-26 12:40] LABS: Glucose, Whole Blood 122 mg/dL (60-115)
--- NOTE | 2021-04-26 13:13 | P.CONAN_ITS ---
[facility] Active Problems Active Problems: All Active Problems (Updated 04/25/21 @ 16:03 by Davidson Canchola MD) PAF (paroxysmal atrial fibrillation) (Acute) ICD (implantable cardioverter-defibrillator) in place (Acute) Cardiomyopathy (Acute) Preoperative cardiovascular examination (Acute) Hematemesis (Acute) Anemia (Acute) Alcohol abuse (Acute) Acute pancreatitis (Acute) Acute gout of left knee (Acute) Past Medical History Medical History Afib Diabetes HTN (hypertension) Family History Family History Mother Hypertension Surgical History Surgical History H/O coronary artery bypass surgery History of implantable cardiac defibrillator (ICD) History of Problems with Anesthesia: No Social History Social History Household Members: None Housing: Snf Do you presently have visiting nurse or other home services: Yes Patient Tobacco Use Status: Never used Tobacco service: No Current occupational status: disabled Meds Allergies Allergy/AdvReac Type Severity Reaction Status Date / Time No Known Allergies Allergy Verified 08/06/20 16:12 Active Medications: Current Medications Acetaminophen (Acetaminophen 325 Mg Tablet) 650 mg PO Q6H PRN PRN Reason: Pain, Mild (Pain Scale 1-3) Amiodarone HCl (Amiodarone Hcl 200 Mg Tablet) 200 mg PO DAILY [facility] Last Admin: 04/26/21 09:44 Dose: 200 mg Documented by: Atorvastatin Calcium (Atorvastatin Calcium 10 Mg Tablet) 10 mg PO DAILY [facility] Last Admin: 04/26/21 09:44 Dose: 10 mg Documented by: Colchicine (Colchicine 0.6 Mg Tablet) 0.6 mg PO BID [facility] Last Admin: 04/26/21 09:44 Dose: 0.6 mg Documented by: Dextrose (Dextrose 50 % 25 Gm/50 Ml Syringe) 25 gm IVPUSH Q15M PRN; Protocol PRN Reason: per Hypoglycemia Standing Ord. Last Admin: 04/26/21 11:44 Dose: 25 gm Documented by: Insulin Human Lispro (Insulin Lispro 100 Unit/Ml 3 Ml Vial) 0 unit SUBCUT QIDACHS [facility]; Protocol Last Admin: 04/26/21 11:49 Dose: Not Given Documented by: Lorazepam (Lorazepam 0.5 Mg Tablet) 0.5 mg PO Q8H PRN PRN Reason: Delirium Magnesium Oxide (Magnesium Oxide 400 Mg Tablet) 400 mg PO DAILY [facility] Last Admin: 04/26/21 09:44 Dose: 400 mg Documented by: Metoprolol Tartrate (Metoprolol Tartrate 50 Mg Tablet) 50 mg PO BID [facility]; Protocol Last Admin: 04/26/21 09:44 Dose: 50 mg Documented by: Morphine Sulfate (Morphine Sulfate 4 Mg/Ml Cartridge) 4 mg IVPUSH Q4H PRN; Protocol PRN Reason: Pain, Severe (Pain Scale 7-10) Last Admin: 04/26/21 09:44 Dose: 4 mg Documented by: Ondansetron HCl (Ondansetron Hcl 4 Mg/2 Ml Vial) 4 mg IVPUSH Q8H PRN PRN Reason: Nausea and Vomiting Last Admin: 04/25/21 06:04 Dose: 4 mg Documented by: Pantoprazole Sodium (Pantoprazole Sodium 40 Mg/10 Ml Vial) 40 mg IVPUSH BID@0630,1630 [facility] Last Admin: 04/26/21 05:39 Dose: 40 mg Documented by: Pharmacy Consult (Consult Rx Perform Med Rec) 1 each MISCELLANE ONCE PRN PRN Reason: Consult order Sodium Chloride (0.9 % Sodium Chloride Flush 3 Ml Syringe) [facility] Last Admin: 04/26/21 09:44 Dose: 3 ml Documented by: Home Medications Medication Instructions Recorded Confirmed Last Taken Type acetaminophen 325 mg tablet 650 mg PO Q6H PRN 04/24/21 04/24/21 Unknown History amiodarone 200 mg tablet 1 tab PO DAILY 04/24/21 04/24/21 Unknown History apixaban 5 mg tablet (Eliquis) 1 tab PO BID 04/24/21 04/24/21 Unknown History atorvastatin 10 mg tablet 1 tab PO DAILY 04/24/21 04/24/21 Unknown History glipizide 10 mg tablet, extended 1 tab PO DAILY 04/24/21 04/24/21 Unknown History release 24 hr hydrocortisone 1 %-iodoquinol 1 % 1 appl TOPICAL DAILY PRN 04/24/21 04/24/21 Unknown History topical cream insulin lispro 100 unit/mL 1 sliding scale dose SUBCUT 04/24/21 04/24/21 Unknown History subcutaneous solution (Humalog USEASDIRECTD U-100 Insulin) [id number] 1 cap PO DAILY 04/24/21 04/24/21 Unknown History 20,000-63,000-84,000 unit capsule, delayed rel (Zenpep) lorazepam 0.5 mg tablet 0.5 mg PO Q8H PRN 04/24/21 04/24/21 Unknown History magnesium oxide 400 mg PO DAILY 04/24/21 04/24/21 Unknown History metoprolol tartrate 50 mg tablet 1 tab PO BID 04/24/21 04/24/21 Unknown History oxycodone 5 mg capsule 5 mg PO Q6H PRN 04/24/21 04/24/21 Unknown History pantoprazole 40 mg tablet,delayed 1 tab PO DAILY 04/24/21 04/24/21 Unknown History release Exam Exam Date and Time: April 26, 2021 1313 Height,Weight and Vital Signs: Height 5 ft 11 in Weight 104.9 kg Last Vital Signs Temp 96.9 F 04/26/21 10:59 Pulse 88 04/26/21 10:59 Resp 20 04/26/21 10:59 BP 113/79 04/26/21 10:59 Pulse Ox 94 04/26/21 10:59 Pertinent Lab Results Pertinent Lab Results: Laboratory Tests 04/24/21 04/24/21 04/24/21 11:47 11:47 11:47 WBC RBC Hgb Hct MCV MCH MCHC RDW Plt Count MPV Immature Gran % (Auto) Neut % (Auto) Lymph % (Auto) [place] % (Auto) Eos % (Auto) Baso % (Auto) Lymph # (Auto) [place] # (Auto) Eos # (Auto) Baso # (Auto) Abs Immat Gran (auto) Absolute Neuts (auto) Absolute Nucleated RBC Nucleated RBC % (auto) PT INR APTT D-Dimer High Sensitivty Sodium 139 Potassium 5.2 H Chloride 105 Carbon Dioxide 20 L Anion Gap 19 BUN 9 Creatinine 1.01 Estim Creat Clear Calc 95.8 Estimated GFR > 60 POC Glucose Random Glucose 100 D Lactic Acid Calcium 8.5 Total Bilirubin 1.8 H Direct Bilirubin AST 62 H ALT 28 Alkaline Phosphatase 111 Troponin I High Sens Total Protein 6.5 Albumin 2.7 L D Lipase 10 Carcinoembryonic Ag CA 19-9 Antigen Urine Color YELLOW Urine Appearance CLEAR Urine pH 7.5 Ur Specific [place] 1.010 Urine Protein NEG Urine Glucose (UA) NEG Urine Ketones 15 Urine Blood NEG Urine Nitrite NEG Ur Leukocyte Esterase NEG COVID-19 ([facility]) Negative COVID-19 Clin Com See Note Blood Type Antibody Screen 04/24/21 04/24/21 04/24/21 13:35 13:35 13:35 WBC 6.8 RBC 3.11 L Hgb 10.5 L Hct 31.2 L MCV 100.3 H MCH 33.8 H MCHC 33.7 RDW 19.2 H Plt Count 118 L MPV 10.1 Immature Gran % (Auto) 0.3 Neut % (Auto) 79.5 H Lymph % (Auto) 9.6 L [place] % (Auto) 10.2 Eos % (Auto) 0.1 Baso % (Auto) 0.3 Lymph # (Auto) 0.7 L [place] # (Auto) 0.7 Eos # (Auto) 0.0 Baso # (Auto) 0.0 Abs Immat Gran (auto) 0.02 Absolute Neuts (auto) 5.4 Absolute Nucleated RBC 0.000 Nucleated RBC % (auto) 0.0 PT 15.1 H INR 1.3 H APTT 36.9 D-Dimer High Sensitivty < 150 Sodium Potassium Chloride Carbon Dioxide Anion Gap BUN Creatinine Estim Creat Clear Calc Estimated GFR POC Glucose Random Glucose Lactic Acid 2.0 Calcium Total Bilirubin Direct Bilirubin AST ALT Alkaline Phosphatase Troponin I High Sens Total Protein Albumin Lipase Carcinoembryonic Ag CA 19-9 Antigen Urine Color Urine Appearance Urine pH Ur Specific [place] Urine Protein Urine Glucose (UA) Urine Ketones Urine Blood Urine Nitrite Ur Leukocyte Esterase COVID-19 ([facility]) COVID-19 Clin Com Blood Type Antibody Screen 04/24/21 04/24/21 04/24/21 13:35 13:35 17:50 WBC RBC Hgb 10.1 L Hct 29.5 L MCV MCH MCHC RDW Plt Count MPV Immature Gran % (Auto) Neut % (Auto) Lymph % (Auto) [place] % (Auto) Eos % (Auto) Baso % (Auto) Lymph # (Auto) [place] # (Auto) Eos # (Auto) Baso # (Auto) Abs Immat Gran (auto) Absolute Neuts (auto) Absolute Nucleated RBC Nucleated RBC % (auto) PT INR APTT D-Dimer High Sensitivty Sodium Potassium Chloride Carbon Dioxide Anion Gap BUN Creatinine Estim Creat Clear Calc Estimated GFR POC Glucose Random Glucose Lactic Acid Calcium Total Bilirubin Direct Bilirubin AST ALT Alkaline Phosphatase Troponin I High Sens 4.0 Total Protein Albumin Lipase Carcinoembryonic Ag CA 19-9 Antigen Urine Color Urine Appearance Urine pH Ur Specific [place] Urine Protein Urine Glucose (UA) Urine Ketones Urine Blood Urine Nitrite Ur Leukocyte Esterase COVID-19 ([facility]) COVID-19 [facility] Blood Type O Positive Antibody Screen NEGATIVE 04/24/21 04/25/21 04/25/21 22:08 07:20 07:20 WBC 5.9 RBC 2.74 L Hgb 9.3 L Hct 27.2 L MCV 99.3 H MCH 33.9 H MCHC 34.2 RDW 18.5 H Plt Count 104 L MPV 10.7 Immature Gran % (Auto) Neut % (Auto) Lymph % (Auto) [place] % (Auto) Eos % (Auto) Baso % (Auto) Lymph # (Auto) [place] # (Auto) Eos # (Auto) Baso # (Auto) Abs Immat Gran (auto) Absolute Neuts (auto) Absolute Nucleated RBC 0.000 Nucleated RBC % (auto) 0.0 PT INR APTT D-Dimer High Sensitivty Sodium 136 Potassium 3.8 D Chloride 105 Carbon Dioxide 23 Anion Gap 12 BUN 9 Creatinine 0.87 Estim Creat Clear Calc 111.2 Estimated GFR > 60 POC Glucose 114 Random Glucose 162 H D Lactic Acid Calcium 7.4 L D Total Bilirubin 1.7 H Direct Bilirubin 1.3 H AST 32 D ALT 20 Alkaline Phosphatase 85 D Troponin I High Sens Total Protein 4.7 L D Albumin 2.1 L D Lipase Carcinoembryonic Ag CA 19-9 Antigen Urine Color Urine Appearance Urine pH Ur Specific [place] Urine Protein Urine Glucose (UA) Urine Ketones Urine Blood Urine Nitrite Ur Leukocyte Esterase COVID-19 ([facility]) COVID-19 [facility] Blood Type Antibody Screen 04/25/21 04/25/21 04/25/21 07:20 07:20 07:38 WBC RBC Hgb Hct MCV MCH MCHC RDW Plt Count MPV Immature Gran % (Auto) Neut % (Auto) Lymph % (Auto) [place] % (Auto) Eos % (Auto) Baso % (Auto) Lymph # (Auto) [place] # (Auto) Eos # (Auto) Baso # (Auto) Abs Immat Gran (auto) Absolute Neuts (auto) Absolute Nucleated RBC Nucleated RBC % (auto) PT INR APTT D-Dimer High Sensitivty Sodium Potassium Chloride Carbon Dioxide Anion Gap BUN Creatinine Estim Creat Clear Calc Estimated GFR POC Glucose 126 H Random Glucose Lactic Acid Calcium Total Bilirubin Direct Bilirubin AST ALT Alkaline Phosphatase Troponin I High Sens Total Protein Albumin Lipase Carcinoembryonic Ag 2.90 CA 19-9 Antigen <3 Urine Color Urine Appearance Urine pH Ur Specific [place] Urine Protein Urine Glucose (UA) Urine Ketones Urine Blood Urine Nitrite Ur Leukocyte Esterase COVID-19 ([facility]) [facility] Blood Type Antibody Screen 04/25/21 04/25/21 04/25/21 13:39 18:26 20:55 WBC RBC Hgb Hct MCV MCH MCHC RDW Plt Count MPV Immature Gran % (Auto) Neut % (Auto) Lymph % (Auto) [place] % (Auto) Eos % (Auto) Baso % (Auto) Lymph # (Auto) [place] # (Auto) Eos # (Auto) Baso # (Auto) Abs Immat Gran (auto) Absolute Neuts (auto) Absolute Nucleated RBC Nucleated RBC % (auto) PT INR APTT D-Dimer High Sensitivty Sodium Potassium Chloride Carbon Dioxide Anion Gap BUN Creatinine Estim Creat Clear Calc Estimated GFR POC Glucose 111 155 H 116 H Random Glucose Lactic Acid Calcium Total Bilirubin Direct Bilirubin AST ALT Alkaline Phosphatase Troponin I High Sens Total Protein Albumin Lipase Carcinoembryonic Ag CA 19-9 Antigen Urine Color Urine Appearance Urine pH Ur Specific [place] Urine Protein Urine Glucose (UA) Urine Ketones Urine Blood Urine Nitrite Ur Leukocyte Esterase COVID-19 ([facility]) [facility] Blood Type Antibody Screen 04/25/21 04/26/21 04/26/21 21:35 05:32 05:32 WBC 5.8 RBC 2.90 L Hgb 9.8 L Hct 28.4 L MCV 97.9 MCH 33.8 H MCHC 34.5 RDW 17.6 H Plt Count 104 L MPV 10.8 Immature Gran % (Auto) Neut % (Auto) Lymph % (Auto) [place] % (Auto) Eos % (Auto) Baso % (Auto) Lymph # (Auto) [place] # (Auto) Eos # (Auto) Baso # (Auto) Abs Immat Gran (auto) Absolute Neuts (auto) Absolute Nucleated RBC 0.000 Nucleated RBC % (auto) 0.0 PT INR APTT D-Dimer High Sensitivty Sodium 136 Potassium 3.7 Chloride 105 Carbon Dioxide 24 Anion Gap 11 L BUN 8 L Creatinine 0.83 Estim Creat Clear Calc 112.2 Estimated GFR > 60 POC Glucose 128 H Random Glucose 104 D Lactic Acid Calcium 7.3 L Total Bilirubin Direct Bilirubin AST ALT Alkaline Phosphatase Troponin I High Sens Total Protein Albumin Lipase Carcinoembryonic Ag CA 19-9 Antigen Urine Color Urine Appearance Urine pH Ur Specific [place] Urine Protein Urine Glucose (UA) Urine Ketones Urine Blood Urine Nitrite Ur Leukocyte Esterase COVID-19 ([facility]) [facility] Blood Type Antibody Screen 04/26/21 04/26/21 04/26/21 07:45 10:58 12:11 WBC RBC Hgb Hct MCV MCH MCHC RDW Plt Count MPV Immature Gran % (Auto) Neut % (Auto) Lymph % (Auto) [place] % (Auto) Eos % (Auto) Baso % (Auto) Lymph # (Auto) [place] # (Auto) Eos # (Auto) Baso # (Auto) Abs Immat Gran (auto) Absolute Neuts (auto) Absolute Nucleated RBC Nucleated RBC % (auto) PT INR APTT D-Dimer High Sensitivty Sodium Potassium Chloride Carbon Dioxide Anion Gap BUN Creatinine Estim Creat Clear Calc Estimated GFR POC Glucose 94 68 114 Random Glucose Lactic Acid Calcium Total Bilirubin Direct Bilirubin AST ALT Alkaline Phosphatase Troponin I High Sens Total Protein Albumin Lipase Carcinoembryonic Ag CA 19-9 Antigen Urine Color Urine Appearance Urine pH Ur Specific [place] Urine Protein Urine Glucose (UA) Urine Ketones Urine Blood Urine Nitrite Ur Leukocyte Esterase COVID-19 ([facility]) COVID-19 [employer] Blood Type Antibody Screen 04/26/21 12:37 WBC RBC Hgb Hct MCV MCH MCHC RDW Plt Count MPV Immature Gran % (Auto) Neut % (Auto) Lymph % (Auto) [place] % (Auto) Eos % (Auto) Baso % (Auto) Lymph # (Auto) [place] # (Auto) Eos # (Auto) Baso # (Auto) Abs Immat Gran (auto) Absolute Neuts (auto) Absolute Nucleated RBC Nucleated RBC % (auto) PT INR APTT D-Dimer High Sensitivty Sodium Potassium Chloride Carbon Dioxide Anion Gap BUN Creatinine Estim Creat Clear Calc Estimated GFR POC Glucose 122 H Random Glucose Lactic Acid Calcium Total Bilirubin Direct Bilirubin AST ALT Alkaline Phosphatase Troponin I High Sens Total Protein Albumin Lipase Carcinoembryonic Ag CA 19-9 Antigen Urine Color Urine Appearance Urine pH Ur Specific [place] Urine Protein Urine Glucose (UA) Urine Ketones Urine Blood Urine Nitrite Ur Leukocyte Esterase COVID-19 ([facility]) COVID-19 Clin Com Blood Type Antibody Screen Airway Mallampati Class: III TM Dist: >3cm Neck ROM: Full Loose/Missing/Broken Teeth: Yes Heart: RRR Lungs: CTA Assessment and Plan Assessment Anesthesia Assessment: Anesthesia Plan Discussed and Chart Reviewed Final Anesthetic Review History of Problems with Anesthesia: No NPO: Yes ASA Class: III Final Preanesthetic Review: Meds/Allgs Chart Reviewed, Consent Obtained/Reviewed and Anes Risks/Benef Reviewed Patient Risk: Intermediate Procedure Risk: Intermediate Anesthetic Plan Anesthetic Plan: MAC: Disposition: Standard PACU
[2021-04-26 16:31] LABS: Glucose, Whole Blood 106 mg/dL (60-115)
--- NOTE | 2021-04-26 16:53 | PM.PNCARD ---
Subjective Subjective Date of Service: 04/26/21 Interval history: Still having abdominal pain. Waiting to go for endoscopy. Physical Exam Vital Signs: Last Vital Signs Temp 99.8 F 04/26/21 14:55 Pulse 90 04/26/21 14:55 Resp 18 04/26/21 14:55 BP 110/68 04/26/21 14:55 Pulse Ox 100 04/26/21 14:55 BMI result Body Mass Index 32.2 GENERAL APPEARANCE: in no acute distress, pleasant. NECK: no carotid bruit, no jugular venous distention. SKIN: no suspicious lesions, warm and dry. HEART: no murmurs, regular rate and rhythm. LUNGS: clear to auscultation bilaterally. ABDOMEN: soft, nontender. EXTREMITIES: no edema. PERIPHERAL PULSES: equal. NEUROLOGIC: No gross deficits, AAO X 3 Objective Labs and Meds Result diagrams: 04/26/21 05:32 04/26/21 05:32 Lab results: Laboratory Results - last 24 hr 04/25/21 04/25/21 04/25/21 07:20 18:26 20:55 WBC RBC Hgb Hct MCV MCH MCHC RDW Plt Count MPV Absolute Nucleated RBC Nucleated RBC % (auto) Sodium Potassium Chloride Carbon Dioxide Anion Gap BUN Creatinine Estim Creat Clear Calc Estimated GFR POC Glucose 155 H 116 H Random Glucose Calcium CA 19-9 Antigen <3 04/25/21 04/26/21 04/26/21 21:35 05:32 05:32 WBC 5.8 RBC 2.90 L Hgb 9.8 L Hct 28.4 L MCV 97.9 MCH 33.8 H MCHC 34.5 RDW 17.6 H Plt Count 104 L MPV 10.8 Absolute Nucleated RBC 0.000 Nucleated RBC % (auto) 0.0 Sodium 136 Potassium 3.7 Chloride 105 Carbon Dioxide 24 Anion Gap 11 L BUN 8 L Creatinine 0.83 Estim Creat Clear Calc 112.2 Estimated GFR > 60 POC Glucose 128 H Random Glucose 104 D Calcium 7.3 L CA 19-9 Antigen 04/26/21 04/26/21 04/26/21 07:45 10:58 12:11 WBC RBC Hgb Hct MCV MCH MCHC RDW Plt Count MPV Absolute Nucleated RBC Nucleated RBC % (auto) Sodium Potassium Chloride Carbon Dioxide Anion Gap BUN Creatinine Estim Creat Clear Calc Estimated GFR POC Glucose 94 68 114 Random Glucose Calcium CA 19-9 Antigen 04/26/21 04/26/21 12:37 16:23 WBC RBC Hgb Hct MCV MCH MCHC RDW Plt Count MPV Absolute Nucleated RBC Nucleated RBC % (auto) Sodium Potassium Chloride Carbon Dioxide Anion Gap BUN Creatinine Estim Creat Clear Calc Estimated GFR POC Glucose 122 H 106 Random Glucose Calcium CA 19-9 Antigen Progress Note: A&P Assessment and plan (1) PAF (paroxysmal atrial fibrillation): Status: Acute (2) ICD (implantable cardioverter-defibrillator) in place: Status: Acute (3) Cardiomyopathy: Status: Acute Plan 61-year-old gentleman background 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 Denying any chest pain. Previous cardiac catheterization from 2017 did not show any coronary disease. Clinically not in heart failure. Can proceed with endoscopy with intermediate risk for perioperative complications. Thank you for allowing me to participate in the care of your patient. Please feel free to contact me if you have any questions. Fall Risk Details Current Medications: Current Medications Acetaminophen (Acetaminophen 325 Mg Tablet) 650 mg PO Q6H PRN PRN Reason: Pain, Mild (Pain Scale 1-3) Amiodarone HCl (Amiodarone Hcl 200 Mg Tablet) 200 mg PO DAILY [facility] Last Admin: 04/26/21 09:44 Dose: 200 mg Documented by: Atorvastatin Calcium (Atorvastatin Calcium 10 Mg Tablet) 10 mg PO DAILY [facility] Last Admin: 04/26/21 09:44 Dose: 10 mg Documented by: Colchicine (Colchicine 0.6 Mg Tablet) 0.6 mg PO BID [facility] Last Admin: 04/26/21 09:44 Dose: 0.6 mg Documented by: Dextrose (Dextrose 50 % 25 Gm/50 Ml Syringe) 25 gm IVPUSH Q15M PRN; Protocol PRN Reason: per Hypoglycemia Standing Ord. Last Admin: 04/26/21 11:44 Dose: 25 gm Documented by: Insulin Human Lispro (Insulin Lispro 100 Unit/Ml 3 Ml Vial) 0 unit SUBCUT QIDACHS [facility]; Protocol Last Admin: 04/26/21 16:33 Dose: Not Given Documented by: Lorazepam (Lorazepam 0.5 Mg Tablet) 0.5 mg PO Q8H PRN PRN Reason: Delirium Magnesium Oxide (Magnesium Oxide 400 Mg Tablet) 400 mg PO DAILY [facility] Last Admin: 04/26/21 09:44 Dose: 400 mg Documented by: Metoprolol Tartrate (Metoprolol Tartrate 50 Mg Tablet) 50 mg PO BID [facility]; Protocol Last Admin: 04/26/21 09:44 Dose: 50 mg Documented by: Morphine Sulfate (Morphine Sulfate 4 Mg/Ml Cartridge) 4 mg IVPUSH Q4H PRN; Protocol PRN Reason: Pain, Severe (Pain Scale 7-10) Last Admin: 04/26/21 09:44 Dose: 4 mg Documented by: Ondansetron HCl (Ondansetron Hcl 4 Mg/2 Ml Vial) 4 mg IVPUSH Q8H PRN PRN Reason: Nausea and Vomiting Last Admin: 04/25/21 06:04 Dose: 4 mg Documented by: Pantoprazole Sodium (Pantoprazole Sodium 40 Mg/10 Ml Vial) 40 mg IVPUSH BID@0630,1630 [facility] Last Admin: 04/26/21 05:39 Dose: 40 mg Documented by: Pharmacy Consult (Consult Rx Perform Med Rec) 1 each MISCELLANE ONCE PRN PRN Reason: Consult order Sodium Chloride (0.9 % Sodium Chloride Flush 3 Ml Syringe) 3 ml IVFLUSH QSHIFT [facility] Last Admin: 04/26/21 09:44 Dose: 3 ml Documented by: Time Spent With Patient Time: Total time spent is greater than 50% in coordination of care (as documented) at patient's floor/unit and/or counseling patient: Time with patient: 15 - 24 minutes Progress Note: Quality Stroke Does the patient have a stroke diagnosis?: No Procedures Date of Service Date of Service: 04/26/21
--- NOTE | 2021-04-26 19:02 | P.BOP_ITS ---
Brief Operative Note Date of Service: 04/26/21 Pre-op diagnosis: Hematemesis, patient is status post gastric bypass surgery Post-op diagnosis: other (Gastric bypass surgery status) Procedure: FLEXIBLE TRANSORAL UPPER GASTROINTESTINAL ENDOSCOPY WITH BIOPSIES Consent: Indications for the procedure and potential complications of bleeding, perforation, reaction to medications and missed diagnosis were discussed with the patient and informed consent was obtained. Instrument: Olympus GIF H 190 mid size upper endoscope Monitoring: Vital signs and clinical assessment, continuous EKG monitoring, Pulse oximetry, Carbon Dioxide monitoring and blood pressure monitoring were done throughout the procedure. Procedure: The patient was placed in the left lateral decubitis position and pre-procedure medications were administered and a bite block was placed. The endoscope was inserted into the mouth and advanced under direct vision to the third part of duodenum. A careful inspection was made as the upper endoscope was withdrawn including a retroflexed examination of the proximal stomach; Findings and interventions are described below. Findings: Larynx: Normal Esophagus: GE junction at 35 cms. No esophagitis or Randolph's. Stomach: Normal appearing Gastro-jejunal anastomosis at 38 cms Jejunum: Efferent limb of jejunal Eyad loop was examined and appeared normal Intervention: None needed Impression and Post Procedure Diagnosis: Endoscopy Findings: STOMACH: Normal appearing Gastro-jejunal anastomosis at 38 cms JEJUNUM: Efferent limb of jejunal Eyad loop was examined and appeared normal No blood a potential source of bleeding noted in the upper GI tract during endoscopy. Episode of hematemesis likely due to Valentine-Triana tear which has healed. 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 Above findings were reviewed with the patient. Surgeon: Zaida Monreal MD Anesthesia: MAC (Dr Allen) Was an Firmware Test Engineer used for this Procedure?: Yes Firmware Test Engineer: Francine Ruiz Estimated blood loss (mL): 0 Pathology: none sent Condition: stable Disposition: PACU
--- NOTE | 2021-04-26 19:08 | P.OP_ITS ---
Operative Note Operative Note Date of Service: 04/26/21 Narrative: Pre-op diagnosis: Hematemesis, patient is status post gastric bypass surgery Post-op diagnosis:?other (Gastric bypass surgery status) Procedure: FLEXIBLE TRANSORAL UPPER GASTROINTESTINAL ENDOSCOPY Consent:?Indications for the procedure and potential complications of bleeding, perforation, reaction to medications and missed diagnosis were discussed with the patient and informed consent was obtained. Instrument:?Olympus GIF H 190 mid size upper endoscope Monitoring: Vital signs and clinical assessment, continuous EKG monitoring, Pulse oximetry, Carbon Dioxide monitoring and blood pressure monitoring were done throughout the procedure. Procedure:?The patient was placed in the left lateral decubitis position and pre-procedure medications were administered and a bite block was placed. The endoscope was inserted into the mouth and advanced under direct vision to the third part of duodenum. A careful inspection was made as the upper endoscope was withdrawn including a retroflexed examination of the proximal stomach; Findings and interventions are described below. Findings: Larynx:? Normal Esophagus: GE junction at 35 cms. No esophagitis or Randolph's. Stomach: Normal appearing Gastro-jejunal anastomosis at 38 cms Jejunum: Efferent limb of jejunal Eyad loop was examined and appeared normal Intervention: None needed Impression and Post Procedure Diagnosis: Endoscopy Findings: STOMACH: Normal appearing Gastro-jejunal anastomosis at 38 cms JEJUNUM:? Efferent limb of jejunal Eyad loop was examined and appeared normal No blood a potential source of bleeding noted in the upper GI tract during endoscopy. Episode of hematemesis likely due to Valentine-Triana tear which has healed. 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 Above findings were reviewed with the patient. Surgeon: Zaida Monreal MD Anesthesia:?MAC (Dr Allen) Was an Lead Java Software Engineer used for this Procedure?:?Yes Lead Java Software Engineer:?Francine Ruiz Estimated blood loss (mL):?0 Pathology:?none sent Condition:?stable Disposition:?PACU
[2021-04-26 20:34] LABS: Glucose, Whole Blood 120 mg/dL (60-115)
[2021-04-27 03:43] VITALS: RESP 16; TEMP 36.6
[2021-04-27 06:18] VITALS: RESP 17
[2021-04-27] MEDS: Pantoprazole Sodium 40 MG/10 ML VIAL IVPUSH (06:18)
[2021-04-27] MEDS: Morphine Sulfate 4 MG/ML CARTRIDGE IVPUSH ×3 (06:18→18:56)
[2021-04-27 06:45] LABS: Hemoglobin 8.9 g/dl (14.0-18.0); Mean Corpuscular HGB Conc 34.2 g/dl (31.0-36.0); Mean Corpuscular Hemoglobin 33.7 pg (27.0-33.0); Mean Corpuscular Volume 98.5 fL (80.0-98.0); Red Blood Count 2.64 X10*6/uL (4.60-5.80); Red Cell Distribution Width 17.4 % (11.0-16.0); White Blood Count 4.5 X10*3/uL (4.8-10.8)
[2021-04-27 07:16] LABS: Anion Gap 11 (12-20); Blood Urea Nitrogen 7 mg/dL (9-16); Carbon Dioxide 22 mmol/L (22-29); Chloride 107 mmol/L (96-108); Creatinine Clr Calc Pharmacy 116.4; Estimated Glomerular Filt Rate > 60; Glucose Random 146 mg/dL (60-115); Potassium 3.3 mmol/L (3.3-5.1); Sodium 137 mmol/L (135-145)
[2021-04-27 07:24] LABS: Calcium 7.3 mg/dL (8.4-10.2)
[2021-04-27 07:27] LABS: Platelet Count 94 X10*3/uL (160-400)
[2021-04-27 07:41] LABS: Glucose, Whole Blood 107 mg/dL (60-115)
[2021-04-27 07:48] VITALS: BP 100/71; PULSE 87; RESP 16; TEMP 36.4; O2SAT 100
--- NOTE | 2021-04-27 08:23 | PC.NURSE ---
Skin/wound assessment completed today. Patient has very dry scaly skin. Ammonium lactate ordered to apply to bilateral feet. Scar on right buttock.
[2021-04-27] MEDS: Metoprolol Tartrate 50 MG TABLET PO ×2 (09:01→20:56)
[2021-04-27] MEDS: Atorvastatin Calcium 10 MG TABLET PO (09:01)
[2021-04-27] MEDS: Amiodarone HCL 200 MG TABLET PO (09:01)
[2021-04-27] MEDS: Magnesium Oxide 400 MG TABLET PO (09:01)
[2021-04-27] MEDS: 0.9 % Sodium Chloride Flush 3 ML SYRINGE IVFLUSH ×3 (09:02→20:56)
[2021-04-27] MEDS: Colchicine 0.6 MG TABLET PO ×2 (09:02→20:56)
[2021-04-27] MEDS: Ammonium Lactate 12 % Lotion 226 GM BOTTLE 1 APPL TOPICAL ×2 (09:03→20:56)
--- NOTE | 2021-04-27 10:29 | PM.DS ---
DS: Providers Provider Date of admission: 04/24/21 16:54 Primary care physician: Unknown Physician Consults: 04/24/21 16:55 Consult to Gastroenterology Routine Consulting Provider: Zaida Monreal Reason for consultation: Hematemesis, On Anticoagulant, tail of pancreas mass? 04/25/21 13:12 Consult to Cardiology Routine Consulting Provider: Davidson Canchola Reason for consultation: Pre Op eval and clearance from cardiology perspective ( anesthesia rec.) DS: Diagnosis Discharge Diagnosis (1) Hematemesis: Status: Resolved (2) Preoperative cardiovascular examination: Status: Acute (3) Acute pancreatitis: Status: Acute (4) Acute gout of left knee: Status: Resolved DS: Summary Hospital Course Hospital Course: Admission note HPI A 61 years old male with PMH of chronic pancreatitis, chronic alcohol dependence, fatty liver, s/p gastric bypass surgery, paroxysmal atrial fibrillation, alcoholic cardiomyopathy among others who presented to the hospital complaining of abdominal pain and hematemesis.? The patient was discharged recently from [facility] as he was evaluated for abdominal pain treated as acute pancreatitis and discharged to SNF.? He reports worsening knee pain over the last few days as he is not taking any active medications for the gout attack he is having.? This morning he started to have an episode of bloody vomitus associated with abdominal pain.? It was 1 incident and did not happened again since then. In the emergency CT scan was consistent with tail of pancreas inflammation and possible mass.? Hemoglobin noticed to be stable since last hospital admission. Admitted for further evaluation and treatment. Hospital course: patient was admitted for acute blood loss anemia from hematemesis from trent aguirre tear. patient's hematemesis stopped, hgb stabilized, he was treated with IV protonix, underwent EGD which did not show any evidence of active bleed. he was trasnsitioned to oral ppi and will be restarted on his eliquis. patient was also treated for acute gout of left knee with colchicine with improvement, nsaids should be avoided. 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 he was unable to get MRI due to AICD, therefore, should follow up with gi as outpatient for possible EUS. for his acute pancreatitis, his symptoms improved and he was able to tolerate solid diet. course was complicated by acute delerium with delusions and agitation. he was seen by pyschiatry who recommended seroquel which was started. patient is now much calmer, insight has improved. patient's chronic condiditons of parozysmal afib, chronic systolic chf, DM, remained stable. he will be discharged to SNF, he is expected to require less than 30 days. Time Spent with Patient Time attestation: Total time spent providing and/or coordinating discharge services: Physical Exam Vital Signs: Vital Signs: Last Vital Signs Temp 97.6 F 04/27/21 07:48 Pulse 87 04/27/21 07:48 Resp 16 04/27/21 07:48 BP 100/71 04/27/21 07:48 Pulse Ox 100 04/27/21 07:48 BMI result Body Mass Index 32.2 Const: Other: Constitutional : Alert, oriented, not in distress Neck : Normal inspection, Supple Cardiovascular : RRR, S1 S2, no lower extremity edema Respiratory : Fair bilateral air entry, no crackles, wheezes or rhonchi Gastrointestinal: soft, lax, decreased bowel sounds, no more tenderness , no surgical signs Skin : Warm, Dry Neurological : Alert & oriented x3, No focal deficit Extremities: Left knee decreased mild effusion with less tenderness, no erythema noted. DS: Data Data Completed and Pending Labs on day of discharge: Laboratory Results - last 24 hr 04/25/21 04/26/21 04/26/21 07:20 10:58 12:11 WBC RBC Hgb Hct MCV MCH MCHC RDW Plt Count MPV Absolute Nucleated RBC Nucleated RBC % (auto) Sodium Potassium Chloride Carbon Dioxide Anion Gap BUN Creatinine Estim Creat Clear Calc Estimated GFR POC Glucose 68 114 Random Glucose Calcium CA 19-9 Antigen <3 04/26/21 04/26/21 04/26/21 12:37 16:23 20:23 WBC RBC Hgb Hct MCV MCH MCHC RDW Plt Count MPV Absolute Nucleated RBC Nucleated RBC % (auto) Sodium Potassium Chloride Carbon Dioxide Anion Gap BUN Creatinine Estim Creat Clear Calc Estimated GFR POC Glucose 122 H 106 120 H Random Glucose Calcium CA 19-9 Antigen 04/27/21 04/27/21 04/27/21 06:14 06:14 07:32 WBC 4.5 L RBC 2.64 L Hgb 8.9 L Hct 26.0 L MCV 98.5 H MCH 33.7 H MCHC 34.2 RDW 17.4 H Plt Count 94 L MPV 11.0 Absolute Nucleated RBC 0.000 Nucleated RBC % (auto) 0.0 Sodium 137 Potassium 3.3 Chloride 107 Carbon Dioxide 22 Anion Gap 11 L BUN 7 L Creatinine 0.80 Estim Creat Clear Calc 116.4 Estimated GFR > 60 POC Glucose 107 Random Glucose 146 H D Calcium 7.3 L CA 19-9 Antigen Discharge Plan Discharge Patient Disposition: Xfer [facility] Discharge Diagnosis: Vomiting blood Gout attack Referrals: [facility] [Outside] - 1 Week Zaida Monreal MD [Physician] - 1 Week Physician,Unknown J [Primary Care Provider] - 1 Week Discharge Medications: New colchicine [Colcrys] 0.6 mg Tablet 0.6 mg PO BID 5 Days Qty: 10 0RF oxycodone 5 mg tablet 5 mg PO Q8H PRN (Reason: pain (scale score 7-10)) Qty: 10 0RF quetiapine 25 mg Tablet 25 mg PO BID Qty: 0 0RF Continued acetaminophen 325 mg Tablet 650 mg PO Q6H PRN (Reason: Pain) 0RF atorvastatin 10 mg tablet 1 tab PO DAILY 0RF amiodarone 200 mg tablet 1 tab PO DAILY 0RF glipizide 10 mg tablet extended release 24hr 1 tab PO DAILY 0RF lorazepam 0.5 mg Tablet 0.5 mg PO Q8H PRN (Reason: Delirium) 0RF pantoprazole 40 mg tablet,delayed release (DR/EC) 1 tab PO DAILY 0RF oxycodone 5 mg capsule 5 mg PO Q6H PRN (Reason: moderate pain) 0RF metoprolol tartrate 50 mg tablet 1 tab PO BID 0RF insulin lispro [Humalog U-100 Insulin] 100 unit/mL Solution 1 sliding scale dose SUBCUT USEASDIRECTD 0RF Rx Instructions: 200-249: 2 UNITS 250-299: 4 UNITS 300-349: 6 UNITS 350-399: 8 UNITS 400+ CONTACT hydrocortisone-iodoquinol 1-1 % Cream 1 appl TOPICAL DAILY PRN (Reason: Itching) 0RF Eliquis 5 mg tablet 1 tab PO BID 0RF Zenpep 20,000-63,000- 84,000 unit capsule,delayed release(DR/EC) 1 cap PO DAILY 0RF magnesium oxide 400 mg magnesium Tablet 400 mg PO DAILY 0RF Rx Instructions: FOR 5 DAYS, TO END 04/27/21 Discharge Orders: Discharge Order (Routine); Ordered 04/28/21 Ordered By: Bora Driscoll Diet: advance to usual diet Activity on Discharge: As tolerated Stand Alone Forms: Patient Portal Discharge page Care Plan Goals: Read below Health Concerns: Read below Plan of Treatment: Read below Assessment: continue ppi, restart eliquis, seroquel, follow up gi for possible EUS Patient Instructions: Pancreatitis (DC) Discharge Date/Time: 04/28/21 17:15
--- NOTE | 2021-04-27 10:46 | HO.POSTANES ---
Post Anesthesia Evaluation Post Anesthesia Evaluation Vital Signs: Vital Signs Temp Pulse Resp BP Pulse Ox 04/27/21 07:48 97.6 F 87 16 100/71 100 04/27/21 06:18 17 04/27/21 03:43 97.8 F 16 04/26/21 23:13 97.5 F 86 16 112/71 94 04/26/21 22:51 18 Anesthesia: Monitored Mental Status: Awake Pain Control: Satisfactory Nausea/Vomiting: None Hydration: Adequate Anesthesia-Related Issues: No Anes. Related Issues
[2021-04-27] MEDS: ondansetron HCL 4 MG/2 ML VIAL IVPUSH ×2 (11:06→20:56)
[2021-04-27 11:16] LABS: Glucose, Whole Blood 190 mg/dL (60-115)
[2021-04-27 11:29] VITALS: BP 123/80; PULSE 84; RESP 12; TEMP 36.7; O2SAT 99
[2021-04-27] MEDS: Insulin Lispro 100 UNIT/ML 3 ML VIAL SUBCUT (11:52)
--- NOTE | 2021-04-27 12:05 | MHC.CM.PN ---
Patient has been medically cleared for dc to SNF/STR today. Patient will return to [facility] to complete STR today at 2:30 PM via [facility]. Last IMM addressed 04/25/21. Patient/SON/Ray Moreno. are aware of and in agreement with the dc plan.
[2021-04-27 13:11] LABS: Influenza A PCR NEGATIVE (Negative); Influenza B PCR NEGATIVE (Negative); Resp Syncy Virus RNA Qual PCR NEGATIVE (Negative); SARS COV2 PCR INHOUSE NEGATIVE (Negative)
--- NOTE | 2021-04-27 14:15 | MHC.CM.PN ---
CM and MD met with Patient at bedside, Patient appears to be experiencing increased confusion. Per MD, scheduled dc for today has been canceled.CM left a detailed message for Patient's Son/Ray Buckley @ [phone], informing him of the change of plans..
--- NOTE | 2021-04-27 14:15 | HO.PM.IMPN ---
Subjective Subjective Date of Service: 04/27/21 Interval History: The patient was seen and evaluated this afternoon Restless and agitated about being discharged and feeling every 1 a is conspiring the hind him and people are talking about him Had a long discussion with him where he blamed everyone who were trying to make him look like an evil Knee pain improved Denies any fever, chills or shortness of breath No reported other overnight events. Review of Systems No fever, chills or weakness No chest pain, palpitation No shortness of breath or coughing Abdominal pain to resolve, tolerating diet No urinary symptoms No any rash or wounds Knee pain improved significantly Physical Exam Vital Signs: Vital Signs: Last Vital Signs Temp 98.1 F 04/27/21 11:29 Pulse 84 04/27/21 11:29 Resp 12 04/27/21 11:29 BP 123/80 04/27/21 11:29 Pulse Ox 99 04/27/21 11:29 BMI result Body Mass Index 32.2 Const: Other: Constitutional : Alert, oriented, not in distress Neck : Normal inspection, Supple Cardiovascular : RRR, S1 S2, no lower extremity edema Respiratory : Fair bilateral air entry, no crackles, wheezes or rhonchi Gastrointestinal: soft, lax, decreased bowel sounds, no more tenderness , no surgical signs Skin : Warm, Dry Neurological : Alert & oriented x3, No focal deficit Extremities: Left knee decreased no more effusion with less tenderness, no erythema noted. Objective Data Active Medications Acetaminophen (Acetaminophen 325 Mg Tablet) 650 mg PO Q6H PRN PRN Reason: Pain, Mild (Pain Scale 1-3) Amiodarone HCl (Amiodarone Hcl 200 Mg Tablet) 200 mg PO DAILY [facility] Last Admin: 04/27/21 09:01 Dose: 200 mg Documented by: ESTUARDO Atorvastatin Calcium (Atorvastatin Calcium 10 Mg Tablet) 10 mg PO DAILY [facility] Last Admin: 04/27/21 09:01 Dose: 10 mg Documented by: ESTUARDO Colchicine (Colchicine 0.6 Mg Tablet) 0.6 mg PO BID [facility] Last Admin: 04/27/21 09:02 Dose: 0.6 mg Documented by: ESTUARDO Dextrose (Dextrose 50 % 25 Gm/50 Ml Syringe) 25 gm IVPUSH Q15M PRN; Protocol PRN Reason: per Hypoglycemia Standing Ord. Last Admin: 04/26/21 11:44 Dose: 25 gm Documented by: KIMBERLY Insulin Human Lispro (Insulin Lispro 100 Unit/Ml 3 Ml Vial) 0 unit SUBCUT QIDACHS [facility]; Protocol Last Admin: 04/27/21 11:52 Dose: 2 unit Documented by: ESTUARDO Lactic Acid (Ammonium Lactate 12 % Lotion 226 Gm Bottle) 1 appl TOPICAL BID [facility]; Protocol Last Admin: 04/27/21 09:03 Dose: 1 appl Documented by: ESTUARDO Lorazepam (Lorazepam 0.5 Mg Tablet) 0.5 mg PO Q8H PRN PRN Reason: Delirium Magnesium Oxide (Magnesium Oxide 400 Mg Tablet) 400 mg PO DAILY [facility] Last Admin: 04/27/21 09:01 Dose: 400 mg Documented by: ESTUARDO Metoprolol Tartrate (Metoprolol Tartrate 50 Mg Tablet) 50 mg PO BID [facility]; Protocol Last Admin: 04/27/21 09:01 Dose: 50 mg Documented by: ESTUARDO Morphine Sulfate (Morphine Sulfate 4 Mg/Ml Cartridge) 4 mg IVPUSH Q4H PRN; Protocol PRN Reason: Pain, Severe (Pain Scale 7-10) Last Admin: 04/27/21 11:51 Dose: 4 mg Documented by: ESTUARDO Ondansetron HCl (Ondansetron Hcl 4 Mg/2 Ml Vial) 4 mg IVPUSH Q8H PRN PRN Reason: Nausea and Vomiting Last Admin: 04/27/21 11:06 Dose: 4 mg Documented by: ESTUARDO Pantoprazole Sodium (Pantoprazole Sodium 40 Mg/10 Ml Vial) 40 mg IVPUSH BID@0630,1630 [facility] Last Admin: 04/27/21 06:18 Dose: 40 mg Documented by: NORY Pharmacy Consult (Consult Rx Perform Med Rec) 1 each MISCELLANE ONCE PRN PRN Reason: Consult order Sodium Chloride (0.9 % Sodium Chloride Flush 3 Ml Syringe) 3 ml IVFLUSH QSHIFT [facility] Last Admin: 04/27/21 09:02 Dose: 3 ml Documented by: ESTUARDO Labs CBC & Chem 7: 04/27/21 06:14 04/27/21 06:14 Labs: Laboratory Results - last 24 hr 04/26/21 04/26/21 04/27/21 16:23 20:23 06:14 MCV 98.5 H MCH 33.7 H MCHC 34.2 RDW 17.4 H Plt Count 94 L MPV 11.0 Absolute Nucleated RBC 0.000 Nucleated RBC % (auto) 0.0 Anion Gap Estim Creat Clear Calc Estimated GFR POC Glucose 106 120 H Random Glucose Calcium Influenza Type A (PCR) Influenza Type B (PCR) RSV RNA Qual (PCR) SARS-CoV-2 RNA (RT-PCR) 04/27/21 04/27/21 04/27/21 06:14 07:32 11:13 MCV MCH MCHC RDW Plt Count MPV Absolute Nucleated RBC Nucleated RBC % (auto) Anion Gap 11 L Estim Creat Clear Calc 116.4 Estimated GFR > 60 POC Glucose 107 190 H Random Glucose 146 H D Calcium 7.3 L Influenza Type A (PCR) Influenza Type B (PCR) RSV RNA Qual (PCR) SARS-CoV-2 RNA (RT-PCR) 04/27/21 12:07 MCV MCH MCHC RDW Plt Count MPV Absolute Nucleated RBC Nucleated RBC % (auto) Anion Gap Estim Creat Clear Calc Estimated GFR POC Glucose Random Glucose Calcium Influenza Type A (PCR) NEGATIVE Influenza Type B (PCR) NEGATIVE RSV RNA Qual (PCR) NEGATIVE SARS-CoV-2 RNA (RT-PCR) NEGATIVE Assessment and Plan (1) Hematemesis: Status: Acute (2) Acute pancreatitis: Status: Acute (3) Acute gout of left knee: Status: Acute (4) Agitation: Status: Acute Plan A 61 years old male with PMH of chronic pancreatitis, alcohol abuse, fatty liver, gastric bypass surgery, atrial fibrillation, alcoholic cardiomyopathy s\p AICD among others who presented to the hospital complaining of abdominal pain and hematemesis. Agitation Could be 2/2 to delerium, hx bipolar? to use Seroquel as needed Get psychiatry eval Acute pancreatitis , pancreatic mass improved Reported by CT scan Changes concerning for possible tail of pancreas mass Cannot get MRI as AICD not MR friendly? Discontinue IV fluid Advanced diet after endoscopy Morphine for pain control GI to evaluate Hematemesis One incidents, could be secondary to Valentine-Triana tear or ulcer Less likely esophageal varices Monitor H&H Continue IV pantoprazole EGD negative for any findings Acute gout attack of left knee Seems improving Avoid NSAIDs Continue colchicine History of AFib Continue amiodarone, metoprolol Hold Eliquis Type 2 diabetes Diabetic diet SSI DVT PPX SCDs Dispo: Patient was ready to dc before he becomes agitated and restless refusing to go in a breakdown. will get psych eval with a plan to dc to SNF. Quality Stroke Does the patient have a stroke diagnosis?: No VTE Prior VTE?: No VTE Risk Level:: Medical - moderate - high VTE Device Contraindication: Treatment Not Indicated VTE Drug Contraindication: Treatment Not Indicated
[2021-04-27 15:18] VITALS: BP 123/76; PULSE 84; RESP 16; TEMP 36.6; O2SAT 97
[2021-04-27 15:49] LABS: Glucose, Whole Blood 132 mg/dL (60-115)
[2021-04-27 19:06] VITALS: BP 111/65; PULSE 90; RESP 17; TEMP 36.2; O2SAT 97
[2021-04-27 20:11] LABS: Glucose, Whole Blood 132 mg/dL (60-115)
[2021-04-28] VITALS: BP 119/72; PULSE 89; RESP 16; TEMP 36.5; O2SAT 100
[2021-04-28 00:22] VITALS: RESP 18
[2021-04-28] MEDS: Morphine Sulfate 4 MG/ML CARTRIDGE IVPUSH ×4 (00:22→14:42)
[2021-04-28 03:35] VITALS: BP 124/69; PULSE 86; RESP 17; TEMP 36.3; O2SAT 96
[2021-04-28 04:31] VITALS: RESP 18
[2021-04-28 07:31] VITALS: BP 120/81; PULSE 92; RESP 18; TEMP 35.8; O2SAT 100
[2021-04-28 07:53] LABS: Glucose, Whole Blood 103 mg/dL (60-115)
[2021-04-28] MEDS: 0.9 % Sodium Chloride Flush 3 ML SYRINGE IVFLUSH (08:25)
[2021-04-28] MEDS: Atorvastatin Calcium 10 MG TABLET PO (08:26)
[2021-04-28] MEDS: Magnesium Oxide 400 MG TABLET PO (08:26)
[2021-04-28] MEDS: Colchicine 0.6 MG TABLET PO (08:26)
[2021-04-28] MEDS: Metoprolol Tartrate 50 MG TABLET PO (08:26)
[2021-04-28] MEDS: Ammonium Lactate 12 % Lotion 226 GM BOTTLE 1 APPL TOPICAL (08:26)
[2021-04-28] MEDS: Amiodarone HCL 200 MG TABLET PO (08:26)
--- NOTE | 2021-04-28 09:44 | PM.PSYCN ---
History of Present Illness Date of Service: 04/28/21 Chief Complaint: Abd pain, Hematemsis Reason for Consult: agitation, flight of ideas, paranoia, ? history of bipolar disorder? Requesting physician: Ivan Hyde Discussed with referring provider: Yes Sources of Information: patient interviewed and chart reviewed HPI Narrative: Psychiatry was asked to meet with patients, due to agitation, flight of ideas, paranoia, with a question of history of bipolar disorder. Patient was pleasant and engageable when I entered room. He was resting in bed. He did state that he is experiencing pain. He was alert and oriented, able to tell me his name, where he was, month, and reason he was in the hospital. He was also able to tell me that he had recently been at [facility]. When I explained that I was from Psychiatry consult Service, he stated ?I am not sick in the head ?. However, he was agreeable to meeting with me, and answered questions freely. When asked if he has any history of bipolar disorder, he stated no . He did state ?I have had anxiety in my past ?. When asked if he remembers being prescribed Seroquel recently, he stated he has never been given that medication. Per chart review, Seroquel 25 mg t.i.d. p.r.n. was ordered for 5 days in January 2021, for delusions/anxiety. Although mostly alert and oriented, he did have rambling speech at time, and was tangential, circumstantial. He did display some delusional thought, including telling me that he knows people have been arguing about him, and that it is difficult to know who to trust. He states that his configuration consultant had come over his house unexpected, and that he can no longer trust his configuration consultant. He then stated that staff here have said that he smuggled cocaine into his room and was using it. I asked him if he has any history of ever using substances, and he stated no. When asked if he has ever had any thoughts to harm himself or others, he stated no. When asked if he was experiencing any type of auditory or visual hallucinations, he stated the only time he hears a voice in his head is when he hears a new song. He did not appear at all to be responding to any type of internal stimuli during encounter. He did not have any tics or tremors, but was fidgety during encounter, and reached multiple times towards his central line. He was easily redirected not to touch it, but then would resort back to it again after a few minutes. Past Psychiatric History: Denies any past psychiatric treatment. Medical Evaluation Reviewed: Yes Review of Systems Review of Systems A full review of systems was completed and was negative with the exception of pertinent positives noted in history of the presenting illness (HPI). 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 Substance History: none reported, hx alcohol abuse noted in chart Trauma History: none reported Diagnostics Vital Signs (24Hr): Vital Signs - 24 hr 04/27/21 11:29 04/27/21 15:18 04/27/21 19:06 Temperature 98.1 F 98 F 97.1 F Pulse Rate 84 84 90 Respiratory Rate 12 16 17 Blood Pressure 123/80 123/76 111/65 Pulse Oximetry 99 97 97 04/28/21 00:00 04/28/21 00:22 04/28/21 03:35 Temperature 97.7 F 97.4 F Pulse Rate 89 86 Respiratory Rate 16 18 17 Blood Pressure 119/72 124/69 Pulse Oximetry 100 96 04/28/21 04:31 04/28/21 07:31 Temperature 96.5 F L Pulse Rate 92 Respiratory Rate 18 18 Blood Pressure 120/81 Pulse Oximetry 100 BMI result Body Mass Index 32.2 Labs Results: 04/27/21 06:14 04/27/21 06:14 Labs: Laboratory Results - last 48 hr 04/25/21 04/26/21 04/26/21 07:20 10:58 12:11 WBC RBC Hgb Hct MCV MCH MCHC RDW Plt Count MPV Absolute Nucleated RBC Nucleated RBC % (auto) Sodium Potassium Chloride Carbon Dioxide Anion Gap BUN Creatinine Estim Creat Clear Calc Estimated GFR POC Glucose 68 114 Random Glucose Calcium CA 19-9 Antigen <3 Influenza Type A (PCR) Influenza Type B (PCR) RSV RNA Qual (PCR) SARS-CoV-2 RNA (RT-PCR) 04/26/21 04/26/21 04/26/21 12:37 16:23 20:23 WBC RBC Hgb Hct MCV MCH MCHC RDW Plt Count MPV Absolute Nucleated RBC Nucleated RBC % (auto) Sodium Potassium Chloride Carbon Dioxide Anion Gap BUN Creatinine Estim Creat Clear Calc Estimated GFR POC Glucose 122 H 106 120 H Random Glucose Calcium CA 19-9 Antigen Influenza Type A (PCR) Influenza Type B (PCR) RSV RNA Qual (PCR) SARS-CoV-2 RNA (RT-PCR) 04/27/21 04/27/21 04/27/21 06:14 06:14 07:32 WBC 4.5 L RBC 2.64 L Hgb 8.9 L Hct 26.0 L MCV 98.5 H MCH 33.7 H MCHC 34.2 RDW 17.4 H Plt Count 94 L MPV 11.0 Absolute Nucleated RBC 0.000 Nucleated RBC % (auto) 0.0 Sodium 137 Potassium 3.3 Chloride 107 Carbon Dioxide 22 Anion Gap 11 L BUN 7 L Creatinine 0.80 Estim Creat Clear Calc 116.4 Estimated GFR > 60 POC Glucose 107 Random Glucose 146 H D Calcium 7.3 L CA 19-9 Antigen Influenza Type A (PCR) Influenza Type B (PCR) RSV RNA Qual (PCR) SARS-CoV-2 RNA (RT-PCR) 04/27/21 04/27/21 04/27/21 11:13 12:07 15:34 WBC RBC Hgb Hct MCV MCH MCHC RDW Plt Count MPV Absolute Nucleated RBC Nucleated RBC % (auto) Sodium Potassium Chloride Carbon Dioxide Anion Gap BUN Creatinine Estim Creat Clear Calc Estimated GFR POC Glucose 190 H 132 H Random Glucose Calcium CA 19-9 Antigen Influenza Type A (PCR) NEGATIVE Influenza Type B (PCR) NEGATIVE RSV RNA Qual (PCR) NEGATIVE SARS-CoV-2 RNA (RT-PCR) NEGATIVE 04/27/21 04/28/21 19:57 07:33 WBC RBC Hgb Hct MCV MCH MCHC RDW Plt Count MPV Absolute Nucleated RBC Nucleated RBC % (auto) Sodium Potassium Chloride Carbon Dioxide Anion Gap BUN Creatinine Estim Creat Clear Calc Estimated GFR POC Glucose 132 H 103 Random Glucose Calcium CA 19-9 Antigen Influenza Type A (PCR) Influenza Type B (PCR) RSV RNA Qual (PCR) SARS-CoV-2 RNA (RT-PCR) Imaging Radiology Impressions: ITS Impressions Chest X-Ray 04/24/21 13:25 FINDINGS/IMPRESSION: Right internal jugular central venous catheter terminates in the mid SVC. No pneumothorax. Lungs are clear. No pleural effusion. Normal heart size and vascularity. Single lead AICD stably positioned. Abdomen/Pelvis CT 04/24/21 15:43 IMPRESSION: 1. Abnormal study showing 2.3 cm maximum dimension hypodense lesion at the tail of the pancreas with subtle peripancreatic inflammatory changes around the tail, may represent focal pancreatitis versus distal pancreatic neoplasm with superimposed focal pancreatitis. This is a new finding since 08/06/2020. 2. Trace amount of left-sided pleural effusion and significant atherosclerotic coronary arterial disease. 3. Diffuse hepatic hypodensity consistent with severe hepatic steatosis. No superimposed focal liver lesion. 4. Short segment narrowing of the distal sigmoid colon, may represent focal peristalsis versus neoplasm. Significant fecal residual is noted within the remainder of the sigmoid colon as well as within the rectum. If the patient hasn't had any recent colonoscopy, follow-up colonoscopy would be indicated for further clarification. 5. Trace amount of free fluid within the presacral space. This critical result was discussed with Imer Joy MD at 4:15 PM on 04/24/2021 and it was ascertained that the content and urgency of the report was understood at the time of direct communication. Fleischner guidelines were followed. Chest CTA 04/24/21 15:43 IMPRESSION: No evidence of PE. No evidence of aortic dissection or aneurysm. Minimal right lower lobe atelectasis. Mild hepatic steatosis. Multiple right renal cysts VTE: negative Mental Status Exam Mental Status Exam Narrative: Well-developed, overweight male, in NAD. Reclining in bed, hospital garb. Loose dentures/partials in mouth. Did not appear to be responding to any type of internal stimuli during encounter. No abnormal movements noted, no tics tremors, no cogwheeling, no abnormal movements. Ambulation not observed. Facial grimacing at times, reports that he is in pain. Patient Appearance: Fatigued, Disheveled and Appropriate Patient Orientation: Person, Place and Situation Level of Consciousness: Awake, Appropriate and Alert Patient Behavior: Appropriate and Cooperative Mood Description: Appropriate and Anxious Affect Description: Appropriate and Anxious Patient Cognition Impaired: Yes Ability to Follow Directions: Good Speech Pattern: Clear, Appropriate, Coherent and Rambling (at times) Memory Description: Intact (Appears to be grossly intact.) Hallucinations: None Delusions: Paranoid Ideation (States that people are saying things about him, such as bringing drugs into the hospital.) and Present Thought Process: Illogical Thought Content: positive for Circumstantial and positive for Tangential Judgement: Fair Medications Medications Current Medications Acetaminophen (Acetaminophen 325 Mg Tablet) 650 mg PO Q6H PRN PRN Reason: Pain, Mild (Pain Scale 1-3) Amiodarone HCl (Amiodarone Hcl 200 Mg Tablet) 200 mg PO DAILY [facility] Last Admin: 04/28/21 08:26 Dose: 200 mg Documented by: Atorvastatin Calcium (Atorvastatin Calcium 10 Mg Tablet) 10 mg PO DAILY [facility] Last Admin: 04/28/21 08:26 Dose: 10 mg Documented by: Colchicine (Colchicine 0.6 Mg Tablet) 0.6 mg PO BID [facility] Last Admin: 04/28/21 08:26 Dose: 0.6 mg Documented by: Dextrose (Dextrose 50 % 25 Gm/50 Ml Syringe) 25 gm IVPUSH Q15M PRN; Protocol PRN Reason: per Hypoglycemia Standing Ord. Last Admin: 04/26/21 11:44 Dose: 25 gm Documented by: Insulin Human Lispro (Insulin Lispro 100 Unit/Ml 3 Ml Vial) 0 unit SUBCUT QIDACHS [facility]; Protocol Last Admin: 04/28/21 07:55 Dose: Not Given Documented by: Lactic Acid (Ammonium Lactate 12 % Lotion 226 Gm Bottle) 1 appl TOPICAL BID [facility]; Protocol Last Admin: 04/28/21 08:26 Dose: 1 appl Documented by: Lorazepam (Lorazepam 0.5 Mg Tablet) 0.5 mg PO Q8H PRN PRN Reason: Delirium Magnesium Oxide (Magnesium Oxide 400 Mg Tablet) 400 mg PO DAILY [facility] Last Admin: 04/28/21 08:26 Dose: 400 mg Documented by: Metoprolol Tartrate (Metoprolol Tartrate 50 Mg Tablet) 50 mg PO BID [facility]; Protocol Last Admin: 04/28/21 08:26 Dose: 50 mg Documented by: Morphine Sulfate (Morphine Sulfate 4 Mg/Ml Cartridge) 4 mg IVPUSH Q4H PRN; Protocol PRN Reason: Pain, Severe (Pain Scale 7-10) Last Admin: 04/28/21 04:31 Dose: 4 mg Documented by: Ondansetron HCl (Ondansetron Hcl 4 Mg/2 Ml Vial) 4 mg IVPUSH Q8H PRN PRN Reason: Nausea and Vomiting Last Admin: 04/27/21 20:56 Dose: 4 mg Documented by: Pharmacy Consult (Consult Rx Perform Med Rec) 1 each MISCELLANE ONCE PRN PRN Reason: Consult order Quetiapine Fumarate (Quetiapine Fumarate 25 Mg Tablet) 25 mg PO BID [facility] Quetiapine Fumarate (Quetiapine Fumarate 25 Mg Tablet) 25 mg PO BID PRN PRN Reason: agitation Sodium Chloride (0.9 % Sodium Chloride Flush 3 Ml Syringe) 3 ml IVFLUSH QSHIFT [facility] Last Admin: 04/28/21 08:25 Dose: 3 ml Documented by: Allergies Allergies Allergy/AdvReac Type Severity Reaction Status Date / Time No Known Allergies Allergy Verified 08/06/20 16:12 Assessment & Plan Assessment & Plan (1) Agitation: Status: Acute Code(s): R45.1 - Restlessness and agitation Assessment and Plan: Patient does appear to be experiencing some delusional thought at this time. It is unclear however if he has it actual history of bipolar disorder or any type of anxiety disorder. He does state that he does not carry a diagnosis of bipolar, but that he has had anxiety in the past. He was circumstantial, tangental, rambling at times. Expressed some paranoia, regarding unable to trust people, and that staff is saying that he has smuggled drugs into the hospital. Overall however, he is aware of his name, where he is, and reason he is in the hospital. He understands that he also was recently at [facility]. He states that he is experiencing pain, and can relate this to his physical illness. Plan 1. Recommend quetiapine 25 mg BID scheduled for now, and 2 doses as prn. This recommendation was shared with provider Dr. Driscoll, via secure electronic messaging system. I spent ___30___ minutes with the patient and/or on the patient floor today, greater than?50% of which was spent counseling/coordinating care.
[2021-04-28 11:04] VITALS: BP 132/73; PULSE 89; RESP 18; TEMP 36.1; O2SAT 100
--- NOTE | 2021-04-28 11:38 | HO.PM.IMPN ---
Subjective Subjective Date of Service: 04/28/21 Interval History: cc: hematemsis inteval history: no complaints Cardiovascular Cardiovascular: Reports no additional cardiovascular complaints Respiratory Respiratory: Reports no additional respiratory complaints Physical Exam Vital Signs: Vital Signs: Last Vital Signs Temp 96.9 F 04/28/21 11:04 Pulse 89 04/28/21 11:04 Resp 18 04/28/21 11:04 BP 132/73 04/28/21 11:04 Pulse Ox 100 04/28/21 11:04 BMI result Body Mass Index 32.2 Constitutional : Alert, oriented, not in distress Neck : Normal inspection, Supple Cardiovascular : RRR, S1 S2, no lower extremity edema Respiratory :? Fair bilateral air entry,? no crackles, wheezes or rhonchi Gastrointestinal:? soft, lax, decreased bowel sounds, no more tenderness , no surgical signs Skin : Warm, Dry Neurological : Alert & oriented x3, No focal deficit Extremities:? Left knee decreased no more effusion with less tenderness, no erythema noted. Objective Data Active Medications Acetaminophen (Acetaminophen 325 Mg Tablet) 650 mg PO Q6H PRN PRN Reason: Pain, Mild (Pain Scale 1-3) Amiodarone HCl (Amiodarone Hcl 200 Mg Tablet) 200 mg PO DAILY [facility] Last Admin: 04/28/21 08:26 Dose: 200 mg Documented by: ESTUARDO Atorvastatin Calcium (Atorvastatin Calcium 10 Mg Tablet) 10 mg PO DAILY [facility] Last Admin: 04/28/21 08:26 Dose: 10 mg Documented by: ESTUARDO Colchicine (Colchicine 0.6 Mg Tablet) 0.6 mg PO BID [facility] Last Admin: 04/28/21 08:26 Dose: 0.6 mg Documented by: ESTUARDO Dextrose (Dextrose 50 % 25 Gm/50 Ml Syringe) 25 gm IVPUSH Q15M PRN; Protocol PRN Reason: per Hypoglycemia Standing Ord. Last Admin: 04/26/21 11:44 Dose: 25 gm Documented by: KIMBERLY Insulin Human Lispro (Insulin Lispro 100 Unit/Ml 3 Ml Vial) 0 unit SUBCUT QIDACHS [facility]; Protocol Last Admin: 04/28/21 07:55 Dose: Not Given Documented by: ESTUARDO Non-Admin Reason: No Insulin Coverage Lactic Acid (Ammonium Lactate 12 % Lotion 226 Gm Bottle) 1 appl TOPICAL BID [facility]; Protocol Last Admin: 04/28/21 08:26 Dose: 1 appl Documented by: ESTUARDO Lorazepam (Lorazepam 0.5 Mg Tablet) 0.5 mg PO Q8H PRN PRN Reason: Delirium Magnesium Oxide (Magnesium Oxide 400 Mg Tablet) 400 mg PO DAILY [facility] Last Admin: 04/28/21 08:26 Dose: 400 mg Documented by: ESTUARDO Metoprolol Tartrate (Metoprolol Tartrate 50 Mg Tablet) 50 mg PO BID [facility]; Protocol Last Admin: 04/28/21 08:26 Dose: 50 mg Documented by: ESTUARDO Morphine Sulfate (Morphine Sulfate 4 Mg/Ml Cartridge) 4 mg IVPUSH Q4H PRN; Protocol PRN Reason: Pain, Severe (Pain Scale 7-10) Last Admin: 04/28/21 09:46 Dose: 4 mg Documented by: ESTUARDO Omeprazole (Omeprazole 40 Mg Capsule.Dr) 40 mg PO DAILY@0630 [facility] Ondansetron HCl (Ondansetron Hcl 4 Mg/2 Ml Vial) 4 mg IVPUSH Q8H PRN PRN Reason: Nausea and Vomiting Last Admin: 04/27/21 20:56 Dose: 4 mg Documented by: NORY Pharmacy Consult (Consult Rx Perform Med Rec) 1 each MISCELLANE ONCE PRN PRN Reason: Consult order Quetiapine Fumarate (Quetiapine Fumarate 25 Mg Tablet) 25 mg PO BID [facility] Last Admin: 04/28/21 09:49 Dose: Not Given Documented by: ESTUARDO Non-Admin Reason: Patient Refused Quetiapine Fumarate (Quetiapine Fumarate 25 Mg Tablet) 25 mg PO BID PRN PRN Reason: agitation Sodium Chloride (0.9 % Sodium Chloride Flush 3 Ml Syringe) 3 ml IVFLUSH QSHIFT [facility] Last Admin: 04/28/21 08:25 Dose: 3 ml Documented by: ESTUARDO Labs CBC & Chem 7: 04/27/21 06:14 04/27/21 06:14 Labs: Laboratory Results - last 24 hr 04/27/21 04/27/21 04/27/21 12:07 15:34 19:57 POC Glucose 132 H 132 H Influenza Type A (PCR) NEGATIVE Influenza Type B (PCR) NEGATIVE RSV RNA Qual (PCR) NEGATIVE SARS-CoV-2 RNA (RT-PCR) NEGATIVE 04/28/21 07:33 POC Glucose 103 Influenza Type A (PCR) Influenza Type B (PCR) RSV RNA Qual (PCR) SARS-CoV-2 RNA (RT-PCR) Assessment and Plan (1) Hematemesis: Status: Acute (2) Acute pancreatitis: Status: Acute (3) Acute gout of left knee: Status: Acute (4) Agitation: Status: Acute Plan A 61 years old male with PMH of chronic pancreatitis, alcohol abuse, fatty liver, gastric bypass surgery, atrial fibrillation, alcoholic cardiomyopathy s\p AICD among others who presented to the hospital complaining of abdominal pain and hematemesis. delusions, delerium much calmer now started on seroquel pysch appreciated Acute pancreatitis , pancreatic mass improved Reported by CT scan Changes concerning for possible tail of pancreas mass Cannot get MRI as AICD not MR compatible? tolerating solids outpatient follow up Hematemesis One incident, could be secondary to Valentine-Triana tear Continue ppi, changed to po EGD negative for any findings Acute gout attack of left knee Seems improving Avoid NSAIDs Continue colchicine History of AFib Continue amiodarone, metoprolol Hold ingEliquis Type 2 diabetes Diabetic diet SSI DVT PPX SCDs Quality Stroke Does the patient have a stroke diagnosis?: No VTE Prior VTE?: No VTE Risk Level:: Medical - moderate - high VTE Device Contraindication: Treatment Not Indicated VTE Drug Contraindication: Treatment Not Indicated
[2021-04-28 11:45] LABS: Glucose, Whole Blood 114 mg/dL (60-115)
--- NOTE | 2021-04-28 12:48 | MHC.CM.PN ---
Patient has been medically cleared for dc to [facility] at 4 PM, via [facility].CM informed Son/HCP/Ray Moreno. at [phone] of the dc plan and addressed the IMM with him (original to be mailed certified letter to him and a copy placed on the chart). Ray Moreno is aware of and in agreement with the dc plan.
--- NOTE | 2021-04-28 13:46 | PM.DS ---
DS: Providers Provider Date of Service: 04/28/21 Date of admission: 04/24/21 16:54 Primary care physician: Unknown Physician Consults: 04/24/21 16:55 Consult to Gastroenterology Routine Consulting Provider: Zaida Monreal Reason for consultation: Hematemesis, On Anticoagulant, tail of pancreas mass? 04/25/21 13:12 Consult to Cardiology Routine Consulting Provider: Davidson Canchola Reason for consultation: Pre Op eval and clearance from cardiology perspective ( anesthesia rec.) 04/27/21 14:20 Consult to Psychiatry Routine Consulting Provider: Psych Covering Reason for consultation: Agitation, flight of ideas, paranoia, ?hx of bipolar? DS: Diagnosis Discharge Diagnosis (1) Agitation: Status: Acute DS: Summary Hospital Course Hospital Course: Admission note HPI A 61 years old male with PMH of chronic pancreatitis, chronic alcohol dependence, fatty liver, s/p gastric bypass surgery, paroxysmal atrial fibrillation, alcoholic cardiomyopathy among others who presented to the hospital complaining of abdominal pain and hematemesis.? The patient was discharged recently from [facility] as he was evaluated for abdominal pain treated as acute pancreatitis and discharged to SNF.? He reports worsening knee pain over the last few days as he is not taking any active medications for the gout attack he is having.? This morning he started to have an episode of bloody vomitus associated with abdominal pain.? It was 1 incident and did not happened again since then. In the emergency CT scan was consistent with tail of pancreas inflammation and possible mass.? Hemoglobin noticed to be stable since last hospital admission. Admitted for further evaluation and treatment. Hospital course: patient was admitted for acute blood loss anemia from hematemesis from trent aguirre tear. patient's hematemesis stopped, hgb stabilized, he was treated with IV protonix, underwent EGD which did not show any evidence of active bleed. he was trasnsitioned to oral ppi and will be restarted on his eliquis. patient was also treated for acute gout of left knee with colchicine with improvement, nsaids should be avoided. 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 he was unable to get MRI due to AICD, therefore, should follow up with gi as outpatient for possible EUS. for his acute pancreatitis, his symptoms improved and he was able to tolerate solid diet. course was complicated by acute delerium with delusions and agitation. he was seen by pyschiatry who recommended seroquel which was started. patient is now much calmer, insight has improved. patient's chronic condiditons of parozysmal afib, chronic systolic chf, DM, remained stable. he will be discharged to SNF, he is expected to require less than 30 days. Time Spent with Patient Time attestation: Total time spent providing and/or coordinating discharge services: Discharge coordination time: Greater than 30 minutes Quality: Stroke Does the patient have a stroke diagnosis?: No Physical Exam Vital Signs: Vital Signs: Last Vital Signs Temp 96.9 F 04/28/21 11:04 Pulse 89 04/28/21 11:04 Resp 18 04/28/21 11:04 BP 132/73 04/28/21 11:04 Pulse Ox 100 04/28/21 11:04 BMI result Body Mass Index 32.2 General: AO X 3, no acute distress Resp: CTA bilateral, no accessory muscles used CVS: S1,S2,RRR GI: soft, non tender, non distended Neuro: motor grossly intact, alert Psych: appropriate affect, appropriate insight DS: Data Data Completed and Pending Labs on day of discharge: Laboratory Results - last 24 hr 04/27/21 04/27/21 04/28/21 15:34 19:57 07:33 POC Glucose 132 H 132 H 103 04/28/21 11:09 POC Glucose 114 Discharge Plan Discharge Patient Disposition: Xfer SNF Discharge Diagnosis: Vomiting blood Gout attack [facility] - 1 Week Physician,Unknown J [Primary Care Provider] - 1 Week Discharge Medications: New colchicine [Colcrys] 0.6 mg Tablet 0.6 mg PO BID 5 Days Qty: 10 0RF oxycodone 5 mg tablet 5 mg PO Q8H PRN (Reason: pain (scale score 7-10)) Qty: 10 0RF quetiapine 25 mg Tablet 25 mg PO BID Qty: 0 0RF Continued acetaminophen 325 mg Tablet 650 mg PO Q6H PRN (Reason: Pain) 0RF atorvastatin 10 mg tablet 1 tab PO DAILY 0RF amiodarone 200 mg tablet 1 tab PO DAILY 0RF glipizide 10 mg tablet extended release 24hr 1 tab PO DAILY 0RF lorazepam 0.5 mg Tablet 0.5 mg PO Q8H PRN (Reason: Delirium) 0RF pantoprazole 40 mg tablet,delayed release (DR/EC) 1 tab PO DAILY 0RF oxycodone 5 mg capsule 5 mg PO Q6H PRN (Reason: moderate pain) 0RF metoprolol tartrate 50 mg tablet 1 tab PO BID 0RF insulin lispro [Humalog U-100 Insulin] 100 unit/mL Solution 1 sliding scale dose SUBCUT USEASDIRECTD 0RF Rx Instructions: 200-249: 2 UNITS 250-299: 4 UNITS 300-349: 6 UNITS 350-399: 8 UNITS 400+ CONTACT MD hydrocortisone-iodoquinol 1-1 % Cream 1 appl TOPICAL DAILY PRN (Reason: Itching) 0RF Eliquis 5 mg tablet 1 tab PO BID 0RF Zenpep 20,000-63,000- 84,000 unit capsule,delayed release(DR/EC) 1 cap PO DAILY 0RF magnesium oxide 400 mg magnesium Tablet 400 mg PO DAILY 0RF Rx Instructions: FOR 5 DAYS, TO END 04/27/21 Discharge Orders: Discharge Order (Routine); Ordered 04/28/21 Ordered By: Bora Driscoll Diet: advance to usual diet Activity on Discharge: As tolerated Stand Alone Forms: Patient Portal Discharge page Care Plan Goals: Read below Health Concerns: Read below Plan of Treatment: Read below Assessment: continue ppi
--- NOTE | 2021-04-28 14:33 | MHC.CM.PN ---
CM met with Patient and spoke with Son/HCP/Ray Moreno; apparently Patient was unclear of where he was being dc to. CM confirmed that Patient was returning to [facility] to complete his STR. Patient's Son is agreeable to phone Patient to again reassure him that he is going to [facility], where he was a bed hold.
== END 2021-04-28 17:15 | disposition skilled nursing facility (03) | DRG 438 ==
LOC: HO.ED 16:30 → HO.EDOVER 17:12 → HO.IMC 04-25 18:32
PROVIDERS: Internal Medicine Gastroenterology; Admitting Provider Student in an Organized Health Care Education/Training Program; Emergency Provider Emergency Medicine Emergency Medical Services; Visit Provider Internal Medicine
PROC: 0DJ08ZZ Inspection of Upper Intestinal Tract, Via Natural or Artificial Opening Endoscopic (ICD-10-PCS; CPT 43235; principal; 2021-04-26 14:10)
DX: K85.90 Acute pancreatitis without necrosis or infection, unspecified (principal); K22.6 Gastro-esophageal laceration-hemorrhage syndrome; I42.9 Cardiomyopathy, unspecified; F05 Delirium due to known physiological condition; D62 Acute posthemorrhagic anemia; K86.1 Other chronic pancreatitis; M10.9 Gout, unspecified; I48.0 Paroxysmal atrial fibrillation; F10.10 Alcohol abuse, uncomplicated; D37.8 Neoplasm of uncertain behavior of other specified digestive organs; E11.9 Type 2 diabetes mellitus without complications; K76.0 Fatty (change of) liver, not elsewhere classified; Z20.822 Contact with and (suspected) exposure to COVID-19; Z98.84 Bariatric surgery status; Z95.810 Presence of automatic (implantable) cardiac defibrillator; Z79.4 Long term (current) use of insulin; Z79.01 Long term (current) use of anticoagulants; Z79.899 Other long term (current) drug therapy
CPT/HCPCS: 0241U; 36415; 71045; 71275; 74177; 80048; 80053; 80076; 81003; 82378; 82947; 83605; 83690; 84484; 85014; 85018; 85025; 85027; 85379; 85610; 85730; 86301; 86850; 86900; 86901; 87635; 93005; 96361; 96374; 96375; 96376; 97163; 99285; 99291; J2270; J2405; Q9967

== ENCOUNTER 2021-05-05 07:28 | Outpatient (REF) | payer OTHER, SELFPAY ==
[2021-05-05 07:32] LABS: MANUAL DIFF FLAG NO
[2021-05-05 08:05] LABS: Basophils Percent Auto 0.4 % (0-2); Eosinophils Absolute Auto 0.1 X10*3/uL (0.0-0.4); Eosinophils Percent Auto 1.7 % (0-4); Hematocrit 30.4 % (42.0-52.0); Hemoglobin 10.8 g/dl (14.0-18.0); Imm Gran Abs Auto 0.03 X10*3/uL (0.00-0.03); Imm Gran Pct Auto 0.6 % (0.0-0.4); Lymphocytes Absolute Auto 1.1 X10*3/uL (1.2-4.9); Lymphocytes Percent Auto 22.9 % (20-40); Mean Corpuscular HGB Conc 35.5 g/dl (31.0-36.0); Mean Corpuscular Hemoglobin 33.6 pg (27.0-33.0); Mean Corpuscular Volume 94.7 fL (80.0-98.0); Mean Platelet Volume 10.6 fL (9.4-12.4); Monocytes Absolute Auto 0.4 X10*3/uL (0.1-1.2); Monocytes Percent Auto 8.3 % (2-11); Neutrophils Absolute Auto 3.2 x10*3/uL (2.0-8.3); Neutrophils Percent Auto 66.1 % (45-73); Red Blood Count 3.21 X10*6/uL (4.60-5.80); White Blood Count 4.8 X10*3/uL (4.8-10.8)
[2021-05-05 08:07] LABS: Platelet Count 89 X10*3/uL (160-400)
[2021-05-05 08:17] LABS: Anion Gap 13 (12-20); Blood Urea Nitrogen 8 mg/dL (9-16); Calcium 6.9 mg/dL (8.4-10.2); Carbon Dioxide 21 mmol/L (22-29); Chloride 112 mmol/L (96-108); Estimated Glomerular Filt Rate 50; Glucose Random 70 mg/dL (60-115); Potassium 3.3 mmol/L (3.3-5.1); Sodium 143 mmol/L (135-145)
== END 2021-05-05 07:29 | disposition home or self-care (01) ==
LOC: HO.MMNH1L 07:28
PROVIDERS: Visit Provider Family Medicine
DX: M62.59 Muscle wasting and atrophy, not elsewhere classified, multiple sites (principal); K86.0 Alcohol-induced chronic pancreatitis; E11.9 Type 2 diabetes mellitus without complications
CPT/HCPCS: 36415; 80048; 85025

== ENCOUNTER 2021-05-10 00:38 | Outpatient (REF) | payer OTHER, SELFPAY ==
[2021-05-10 06:46] LABS: MANUAL DIFF FLAG NO
[2021-05-10 06:57] LABS: Basophils Percent Auto 0.7 % (0-2); Eosinophils Absolute Auto 0.1 X10*3/uL (0.0-0.4); Eosinophils Percent Auto 1.9 % (0-4); Hematocrit 28.6 % (42.0-52.0); Hemoglobin 10.4 g/dl (14.0-18.0); Imm Gran Abs Auto 0.03 X10*3/uL (0.00-0.03); Imm Gran Pct Auto 0.5 % (0.0-0.4); Lymphocytes Absolute Auto 1.2 X10*3/uL (1.2-4.9); Lymphocytes Percent Auto 21.9 % (20-40); Mean Corpuscular HGB Conc 36.4 g/dl (31.0-36.0); Mean Corpuscular Hemoglobin 33.1 pg (27.0-33.0); Mean Corpuscular Volume 91.1 fL (80.0-98.0); Mean Platelet Volume 11.2 fL (9.4-12.4); Monocytes Absolute Auto 0.5 X10*3/uL (0.1-1.2); Monocytes Percent Auto 9.4 % (2-11); Neutrophils Absolute Auto 3.7 x10*3/uL (2.0-8.3); Neutrophils Percent Auto 65.6 % (45-73); Red Blood Count 3.14 X10*6/uL (4.60-5.80); Red Cell Distribution Width 15.3 % (11.0-16.0); White Blood Count 5.7 X10*3/uL (4.8-10.8)
[2021-05-10 06:58] LABS: Platelet Count 65 X10*3/uL (160-400)
[2021-05-10 07:20] LABS: Anion Gap 15 (12-20); Blood Urea Nitrogen 12 mg/dL (9-16); Calcium 6.3 mg/dL (8.4-10.2); Carbon Dioxide 20 mmol/L (22-29); Chloride 111 mmol/L (96-108); Estimated Glomerular Filt Rate 52; Glucose Random 166 mg/dL (60-115); Potassium 3.2 mmol/L (3.3-5.1); Sodium 143 mmol/L (135-145)
== END 2021-05-10 00:39 | disposition home or self-care (01) ==
LOC: HO.MMNH1L 00:38
PROVIDERS: Visit Provider Family Medicine
DX: M62.59 Muscle wasting and atrophy, not elsewhere classified, multiple sites (principal); K86.0 Alcohol-induced chronic pancreatitis; E11.9 Type 2 diabetes mellitus without complications
CPT/HCPCS: 36415; 80048; 85025

== ENCOUNTER 2021-05-17 00:44 | Outpatient (REF) | payer OTHER, SELFPAY ==
[2021-05-17 07:27] LABS: Hematocrit 25.3 % (42.0-52.0); Hemoglobin 9.1 g/dl (14.0-18.0); Mean Corpuscular Hemoglobin 33.1 pg (27.0-33.0); Mean Platelet Volume 11.6 fL (9.4-12.4); Red Blood Count 2.75 X10*6/uL (4.60-5.80); Red Cell Distribution Width 15.5 % (11.0-16.0); White Blood Count 5.9 X10*3/uL (4.8-10.8)
[2021-05-17 07:29] LABS: Platelet Count 66 X10*3/uL (160-400)
[2021-05-17 07:46] LABS: Anion Gap 14 (12-20); Blood Urea Nitrogen 20 mg/dL (9-16); Carbon Dioxide 20 mmol/L (22-29); Chloride 110 mmol/L (96-108); Estimated Glomerular Filt Rate 47; Glucose Random 110 mg/dL (60-115); Potassium 3.8 mmol/L (3.3-5.1); Sodium 140 mmol/L (135-145)
[2021-05-17 07:58] LABS: Calcium 6.1 mg/dL (8.4-10.2)
== END 2021-05-17 00:45 | disposition home or self-care (01) ==
LOC: HO.MMNH1L 00:44
PROVIDERS: Visit Provider Family Medicine
DX: M62.59 Muscle wasting and atrophy, not elsewhere classified, multiple sites (principal); K86.0 Alcohol-induced chronic pancreatitis; E11.9 Type 2 diabetes mellitus without complications
CPT/HCPCS: 36415; 80048; 85027

== ENCOUNTER 2021-05-24 01:00 | Outpatient (REF) | payer OTHER, SELFPAY ==
[2021-05-24 07:16] LABS: Hematocrit 34.4 % (42.0-52.0); Hemoglobin 11.3 g/dl (14.0-18.0); Mean Corpuscular HGB Conc 32.8 g/dl (31.0-36.0); Mean Corpuscular Hemoglobin 32.8 pg (27.0-33.0); Mean Platelet Volume 12.5 fL (9.4-12.4); Red Blood Count 3.44 X10*6/uL (4.60-5.80); Red Cell Distribution Width 18.1 % (11.0-16.0); White Blood Count 6.9 X10*3/uL (4.8-10.8)
[2021-05-24 07:18] LABS: Platelet Count 65 X10*3/uL (160-400)
[2021-05-24 07:39] LABS: Anion Gap 16 (12-20); Blood Urea Nitrogen 12 mg/dL (9-16); Calcium 6.7 mg/dL (8.4-10.2); Carbon Dioxide 17 mmol/L (22-29); Chloride 111 mmol/L (96-108); Estimated Glomerular Filt Rate > 60; Glucose Random 153 mg/dL (60-115); Sodium 140 mmol/L (135-145)
== END 2021-05-24 01:01 | disposition home or self-care (01) ==
LOC: HO.MMNH1L 01:00
PROVIDERS: Visit Provider Family Medicine
DX: M62.59 Muscle wasting and atrophy, not elsewhere classified, multiple sites (principal); E11.9 Type 2 diabetes mellitus without complications; K86.0 Alcohol-induced chronic pancreatitis
CPT/HCPCS: 36415; 80048; 85027